=== PATIENT | female | born 1960 | race American Indian/Alaskan Native ===

== ENCOUNTER 2021-11-14 01:30 | Inpatient (IN) | payer SELFPAY ==
[2021-11-14] MEDS ORDERED: ACETAMINOPHEN 500 MG TAB PO ONE (02:25)
[2021-11-14] MEDS ORDERED: ACETAMINOPHEN 325 MG TAB PO ONE (02:28)
[2021-11-14] MEDS ORDERED: SODIUM CHLORIDE 0.9% 1000 ML 1,000 ML IV ONE ×3 (02:30→02:41)
[2021-11-14] MEDS ORDERED: PIPERACIL/TAZOBACTA 4.5/NS 100 4.5 GM/100 ML VIAL IV ONE (02:40)
[2021-11-14 03:00] LABS: Hemoglobin 6.3 gm/dl (10.1-14.3); Mean Corpuscular HGB Conc 33 % (30-34); Mean Corpuscular Volume 77 fl (79-97); Platelet Count 226 K/mm3 (140-440); Red Blood Count 2.54 M/mm3 (3.65-5.03)
--- NOTE | 2021-11-14 03:03 | XRay Report ---
CHEST 1 VIEW 11/14/2021 1:52 AM INDICATION / CLINICAL INFORMATION: fever. COMPARISON: None available. FINDINGS: SUPPORT DEVICES: None. HEART / MEDIASTINUM: No significant abnormality. LUNGS / PLEURA: No significant pulmonary or pleural abnormality. No pneumothorax. ADDITIONAL FINDINGS: No significant additional findings. IMPRESSION: No acute abnormality. Signer Name: Rufino Earl MD Signed: 11/14/2021 2:59 AM Workstation Name: [id number]
[2021-11-14 03:05] LABS: Hematocrit 19.5 % (30.3-42.9); Red Cell Distribution Width 21.4 % (13.2-15.2)
[2021-11-14 03:23] LABS: Alanine Aminotransferase 65 units/L (7-56); Albumin 3.1 g/dL (3.9-5); Blood Urea Nitrogen 12 mg/dL (7-17); Calcium 8.5 mg/dL (8.4-10.2); Hemolysis Index 0
[2021-11-14] MEDS ORDERED: fentaNYL 100 MCG/2 ML INJ IV ONE ×2 (03:30→05:05)
[2021-11-14] MEDS ORDERED: SODIUM CHLORIDE 0.9% 500 ML 500 ML IV ONE (03:34)
[2021-11-14 03:36] LABS: Anisocytosis 1+; Band Neutrophils # (Manual) 0.1 K/mm3; Basophils % (Manual) 0 % (0.0-1.8); Eosinophils % (Manual) 0 % (0.0-4.3); Hypochromasia 2+; Total Cells Counted 100
[2021-11-14 03:37] LABS: Platelet Estimate Consistent w Auto
[2021-11-14 03:39] LABS: BUN/Creatinine Ratio 30
[2021-11-14 04:32] LABS: INR 1.32 (0.87-1.13)
[2021-11-14 04:33] LABS: Partial Thromboplastin Time 27.9 Sec. (24.2-36.6)
--- NOTE | 2021-11-14 04:57 | Cat Scan Report ---
CT ABDOMEN AND PELVIS WITH CONTRAST INDICATION / CLINICAL INFORMATION: hx of cholangiocarcinoma, p/w abd pain, fever, dec. TECHNIQUE: Axial CT images were obtained through the abdomen and pelvis after Omnipaque 300, 100 cc I V contrast. All CT scans at this location are performed using CT dose reduction for ALARA by means o f automated exposure control. COMPARISON: None available. FINDINGS: LOWER CHEST: No significant abnormality. LIVER: Large left hepatic mass is heterogeneous measuring approximately 8.5 cm. This extends outside the liver. Complex fluid collection with internal debris and air anterior and medial left hepatic lob e contains a drain. This may represent the anterior portion of the large hepatic mass. This measures 6.6 cm. 2 cm cyst adjacent to the IVC. GALLBLADDER: Nonvisualized. BILE DUCTS: Left hepatic ductal dilatation. PANCREAS: No significant abnormality. SPLEEN: No significant abnormality. ADRENALS: No significant abnormality. RIGHT KIDNEY / URETER: No significant abnormality. LEFT KIDNEY / URETER: No significant abnormality. STOMACH / SMALL BOWEL: No significant abnormality. COLON: Noninflamed right-sided diverticulosis. APPENDIX: Nonvisualized. PERITONEUM: No free fluid. No free air. No fluid collection. LYMPH NODES: 1.1 cm node anterior to the left hepatic lobe. VASCULAR STRUCTURES: No significant abnormality. URINARY BLADDER: No significant abnormality. REPRODUCTIVE ORGANS: Arch, fibroid uterus. ADDITIONAL FINDINGS: None. SKELETAL SYSTEM: No significant abnormality. IMPRESSION: 1. Large, complex left hepatic mass with resultant left ductal dilatation. This represents cholangioc arcinoma by history. 2. Complex collection may be the anterior portion of the hepatic mass. This contains a drain. 3. Enlarged node anterior to the left hepatic lobe. Signer Name: Rufino Earl MD Signed: 11/14/2021 4:53 AM Workstation Name: [id number]
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
[2021-11-14] MEDS ORDERED: ALBUTEROL 2.5 MG/3 ML NEBU IH PRN (05:35)
[2021-11-14] MEDS ORDERED: ACETAMINOPHEN 325 MG TAB PO PRN (05:35)
--- NOTE | 2021-11-14 05:47 | History and Physical Report ---
History of Present Illness Date of examination: 11/14/21 Date of admission: 11/14/21 Chief complaint: Abdominal pain Nausea vomiting History of present illness: 61-year-old female with history of cholangiocarcinoma, presents for evaluation of body aches fevers chills and decreased drainage from her biliary drain site. Patient reports she moved from [place] 1 week ago and states she has not establish care with a primary care doctor or oncologist while here. She states she was told "my cancer is terminal." She is not currently on chemotherapy. She reports she has been performing wound dressings at home. She states that over the past days she has noted purulent drainage from her wound site. She reports abdominal pain at the site of her drain and states that the drain has been having less biliary drainage than normal. No nausea or vomiting. No chest pain or shortness of breath no difficulty breathing. Pain currently 10 out of [address] scan of the abdomen shows a large complex left hepatic mass with resultant left ductal dilatation. This represents cholangiocarcinoma by history. Complex collection may be anterior portion of the hepatic mass this contains a drain. Enlarged node anterior to the left hepatic lobe Case reviewed via telephone with on-call surgeon, Dr. Davila. Per her verbal report there is no acute or emergent surgical intervention for this patient given the findings on the patient's CAT scan. She also states that gastroenterology likely will not be able to provide any additional input on the patient's biliary drain. The patient confirmed with me during our discussion that she had her biliary drain placed by interventional radiology. She agrees with admission to the hospitalist service and states that the hospitalist service can consult interventional radiology at the time of the patient's admission, for evaluation and management of the patient's biliary drain. Past History Past Medical History: DVT, other (Bile duct cancer) Past Surgical History: Other (radiation embolization, ablasion - bag removed twice & reinserted) Social history: no significant social history Family history: hypertension Medications and Allergies Allergies Allergy/AdvReac Type Severity Reaction Status Date / Time iron AdvReac Itching Verified 11/14/21 02:08 Active Meds: Active Medications Acetaminophen (Acetaminophen 325 Mg Tab) 650 mg PO Q4H PRN PRN Reason: Pain MILD(1-3)/Fever >100.5/CHING Albuterol (Albuterol 2.5 Mg/3 Ml Nebu) 2.5 mg IH Q3HRT PRN PRN Reason: Shortness Of Breath Albuterol/Ipratropium (Ipratropium/Albuterol Sulfate 3 Ml Ampul.Neb) 1 ampul IH Q6HRT VANESSA Famotidine (Famotidine 20 Mg/2 Ml Inj) 20 mg IV BID VANESSA NORepinephrine/NS 8 MG-250 ML (Norepinephrine/Ns 8 Mg-250 Ml (Double Conc)) 8 mg in 250 mls @ 3.75 mls/hr IV TITRATE VANESSA; Protocol Dextrose/Sodium Chloride (D5ns) 1,000 mls @ 125 mls/hr IV DIRECT VANESSA Ondansetron HCl (Ondansetron 4 Mg/2 Ml Inj) 4 mg IV Q8H PRN PRN Reason: Nausea And Vomiting Sodium Chloride (Sodium Chloride 0.9% 10 Ml Flush Syringe) 10 ml IV BID VANESSA Sodium Chloride (Sodium Chloride 0.9% 10 Ml Flush Syringe) 10 ml IV PRN PRN PRN Reason: LINE FLUSH Review of Systems All systems: negative Gastrointestinal: abdominal pain, nausea, vomiting Exam - Constitutional Vitals: Temp Pulse Resp BP Pulse Ox 99.9 F H 105 H 16 81/48 100 11/14/21 05:02 11/14/21 05:02 11/14/21 05:02 11/14/21 05:02 11/14/21 05:02 General appearance: Present: no acute distress, well-nourished - EENT Eyes: Present: PERRL ENT: hearing intact, clear oral mucosa - Neck Neck: Present: supple, normal ROM - Respiratory Respiratory effort: normal Respiratory: bilateral: diminished - Cardiovascular Heart Sounds: Present: S1 & S2. Absent: rub, click - Extremities Extremities: pulses symmetrical, No edema Peripheral Pulses: within normal limits - Abdominal General gastrointestinal: Present: soft, non-tender, non-distended, normal bowel sounds Female genitourinary: Present: normal - Integumentary Integumentary: Present: clear, warm, dry - Musculoskeletal Musculoskeletal: gait normal, strength equal bilaterally - Psychiatric Psychiatric: appropriate mood/affect, intact judgment & insight - Neurologic Neurologic: CNII-XII intact, moves all extremities Results - Labs CBC & Chem 7: 11/14/21 02:50 11/14/21 02:50 Labs: Laboratory Last Values WBC 8.6 K/mm3 (4.5-11.0) 11/14/21 02:50 RBC 2.54 M/mm3 (3.65-5.03) L 11/14/21 02:50 Hgb 6.3 gm/dl (10.1-14.3) L 11/14/21 02:50 Hct 19.5 % (30.3-42.9) L* 11/14/21 02:50 MCV 77 fl (79-97) L 11/14/21 02:50 MCH 25 pg (28-32) L 11/14/21 02:50 MCHC 33 % (30-34) 11/14/21 02:50 RDW 21.4 % (13.2-15.2) H 11/14/21 02:50 Plt Count 226 K/mm3 (140-440) 11/14/21 02:50 Add Manual Diff Complete 11/14/21 02:50 Total Counted 100 11/14/21 02:50 Seg Neutrophils % [employer] 11/14/21 02:50 Seg Neuts % (Manual) 94.0 % (40.0-70.0) H 11/14/21 02:50 Band Neutrophils % 1.0 % 11/14/21 02:50 Lymphocytes % (Manual) 1.0 % (13.4-35.0) L 11/14/21 02:50 Reactive Lymphs % (Man) 0 % 11/14/21 02:50 Monocytes % (Manual) 4.0 % (0.0-7.3) 11/14/21 02:50 Eosinophils % (Manual) 0 % (0.0-4.3) 11/14/21 02:50 Basophils % (Manual) 0 % (0.0-1.8) 11/14/21 02:50 Metamyelocytes % 0 % 11/14/21 02:50 Myelocytes % 0 % 11/14/21 02:50 Promyelocytes % 0 % 11/14/21 02:50 Blast Cells % 0 % 11/14/21 02:50 Nucleated RBC % 1.0 % (0.0-0.9) H 11/14/21 02:50 Seg Neutrophils # Man 8.1 K/mm3 (1.8-7.7) H 11/14/21 02:50 Band Neutrophils # 0.1 K/mm3 11/14/21 02:50 Lymphocytes # (Manual) 0.1 K/mm3 (1.2-5.4) L 11/14/21 02:50 Abs React Lymphs (Man) 0.0 K/mm3 11/14/21 02:50 Monocytes # (Manual) 0.3 K/mm3 (0.0-0.8) 11/14/21 02:50 Eosinophils # (Manual) 0.0 K/mm3 (0.0-0.4) 11/14/21 02:50 Basophils # (Manual) 0.0 K/mm3 (0.0-0.1) 11/14/21 02:50 Metamyelocytes # 0.0 K/mm3 11/14/21 02:50 Myelocytes # 0.0 K/mm3 11/14/21 02:50 Promyelocytes # 0.0 K/mm3 11/14/21 02:50 Blast Cells # 0.0 K/mm3 11/14/21 02:50 WBC Morphology Not Reportable 11/14/21 02:50 Hypersegmented Neuts Not Reportable 11/14/21 02:50 Hyposegmented Neuts Not Reportable 11/14/21 02:50 Hypogranular Neuts Not Reportable 11/14/21 02:50 Smudge Cells Not Reportable 11/14/21 02:50 Toxic Granulation Not Reportable 11/14/21 02:50 Toxic Vacuolation Not Reportable 11/14/21 02:50 Dohle Bodies Not Reportable 11/14/21 02:50 Pelger-Huet Anomaly Not Reportable 11/14/21 02:50 Moises Rods Not Reportable 11/14/21 02:50 Platelet Estimate Consistent w auto 11/14/21 02:50 Clumped Platelets Not Reportable 11/14/21 02:50 Plt Clumps, EDTA Not Reportable 11/14/21 02:50 Large Platelets Not Reportable 11/14/21 02:50 Giant Platelets Not Reportable 11/14/21 02:50 Platelet Satelliting Not Reportable 11/14/21 02:50 Plt Morphology Comment Not Reportable 11/14/21 02:50 RBC Morphology Not Reportable 11/14/21 02:50 Dimorphic RBCs Not Reportable 11/14/21 02:50 Polychromasia Not Reportable 11/14/21 02:50 Hypochromasia 2+ 11/14/21 02:50 Poikilocytosis Not Reportable 11/14/21 02:50 Anisocytosis 1+ 11/14/21 02:50 Microcytosis Not Reportable 11/14/21 02:50 Macrocytosis Not Reportable 11/14/21 02:50 Spherocytes Not Reportable 11/14/21 02:50 Pappenheimer Bodies Not Reportable 11/14/21 02:50 Sickle Cells Not Reportable 11/14/21 02:50 Target Cells Not Reportable 11/14/21 02:50 Tear Drop Cells Not Reportable 11/14/21 02:50 Ovalocytes Not Reportable 11/14/21 02:50 Helmet Cells Not Reportable 11/14/21 02:50 [place] Bodies Not Reportable 11/14/21 02:50 [place] Rings Not Reportable 11/14/21 02:50 [place] Cells Not Reportable 11/14/21 02:50 Bite Cells Not Reportable 11/14/21 02:50 Crenated Cell Not Reportable 11/14/21 02:50 Elliptocytes Not Reportable 11/14/21 02:50 Acanthocytes (Spur) Not Reportable 11/14/21 02:50 Rouleaux Not Reportable 11/14/21 02:50 Hemoglobin C Crystals Not Reportable 11/14/21 02:50 Schistocytes Not Reportable 11/14/21 02:50 Malaria parasites Not Reportable 11/14/21 02:50 David Bodies Not Reportable 11/14/21 02:50 Hem Pathologist Commnt No 11/14/21 02:50 PT 17.9 Sec. (12.2-14.9) H 11/14/21 04:13 INR 1.32 (0.87-1.13) H 11/14/21 04:13 APTT 27.9 Sec. (24.2-36.6) 11/14/21 04:13 Sodium 135 mmol/L (137-145) L 11/14/21 02:50 Potassium 3.9 mmol/L (3.6-5.0) 11/14/21 02:50 Chloride 100.2 mmol/L (98-107) 11/14/21 02:50 Carbon Dioxide 24 mmol/L (22-30) 11/14/21 02:50 Anion Gap 15 mmol/L 11/14/21 02:50 BUN 12 mg/dL (7-17) 11/14/21 02:50 Creatinine 0.4 mg/dL (0.6-1.2) L 11/14/21 02:50 Estimated GFR > 60 ml/min 11/14/21 02:50 BUN/Creatinine Ratio 30 % 11/14/21 02:50 Glucose 110 mg/dL (65-100) H 11/14/21 02:50 Lactic Acid 4.40 mmol/L (0.7-2.0) H* 11/14/21 04:25 Calcium 8.5 mg/dL (8.4-10.2) 11/14/21 02:50 Total Bilirubin 1.70 mg/dL (0.1-1.2) H 11/14/21 02:50 AST 79 units/L (5-40) H 11/14/21 02:50 ALT 65 units/L (7-56) H 11/14/21 02:50 Alkaline Phosphatase 305 units/L (35-129) H 11/14/21 02:50 Total Protein 6.4 g/dL (6.3-8.2) 11/14/21 02:50 Albumin 3.1 g/dL (3.9-5) L 11/14/21 02:50 Albumin/Globulin Ratio 0.9 % 11/14/21 02:50 Lipase 19 units/L (13-60) 11/14/21 02:50 Blood Type AB POSITIVE 11/14/21 04:25 Antibody Screen Negative 11/14/21 04:25 Crossmatch See Detail 11/14/21 04:25 - Imaging and Cardiology CT scan - abdomen: report reviewed Assessment and Plan VTE prophylaxis?: Mechanical Plan of care discussed with patient/family: Yes - Patient Problems (1) Sepsis Current Visit: Yes Status: Acute Plan to address problem: Admit the patient to the IMCU. D5 normal saline at the rate of 125 cc/h. Vancomycin 1 g IV every 12 hours. And Zosyn 4.5 g IV every 8 hours. Case discussed with Dr. Davila who recommended to consult interventional radiology. Blood culture. Recheck CBC BMP in the morning (2) Cholangiocarcinoma Current Visit: Yes Status: Acute Plan to address problem: Case reviewed via telephone with on-call surgeon, Dr. Davila. Per her verbal report there is no acute or emergent surgical intervention for this patient given the findings on the patient's CAT scan. She also states that gastroenterology likely will not be able to provide any additional input on the patient's biliary drain. The patient confirmed with me during our discussion that she had her biliary drain placed by interventional radiology. She agrees with admission to the hospitalist service and states that the hospitalist service can consult interventional radiology at the time of the patient's admission, for evaluation and management of the patient's biliary drain. (3) DVT (deep venous thrombosis) Current Visit: Yes Status: Acute Plan to address problem: Heparin 5000 units subcu every 12 hours for DVT prophylaxis. We continue the home medication (4) Symptomatic anemia Current Visit: Yes Status: Acute Plan to address problem: Transfuse 2 unit of packed red blood cell. Recheck CBC in the morning (5) DVT prophylaxis Current Visit: Yes Status: Acute Plan to address problem: Heparin 5000 units subcu every 12 hours for DVT prophylaxis. Pepcid 20 mg IV every 12 hours for GI prophylaxis. Patient is a full code
[2021-11-14] MEDS ORDERED: VANCOMYCIN/NS 1 GM/250 ML 1 GM/250 ML BAG IV ONE ×2 (06:00→08:00)
[2021-11-14] MEDS ORDERED: NORepinephrine/NS 8 MG-250 ML 8 MG/250 ML INFUS..BTL IV SCH (06:00)
[2021-11-14] MEDS ORDERED: VANCOMYCIN PHARMACY TO DOSE IV SCH (06:00)
[2021-11-14] MEDS ORDERED: LIDOCAINE 1%/EPINEPHRINE 1:100,000 VIAL (20 ML) INFILTRATI NR (06:30)
[2021-11-14] MEDS ORDERED: IPRATROPIUM/ALBUTEROL SULFATE 3 ML AMPUL.NEB IH SCH (08:00)
[2021-11-14] MEDS: D5W/0.9% NACL 1,000 ML IV SCH ×3 (08:54→20:23)
--- NOTE | 2021-11-14 09:13 | Electrocardiograph Report ---
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
--- NOTE | 2021-11-14 09:18 | Consultation ---
History of Present Illness - Reason for Consult Consult date: 11/14/21 Malfunctioning drain - History of Present Illness Patient moved here approximately 1 week ago from [place]. Per patient, she has a history of cholangiocarcinoma. Previous biliary drain initially placed towards the end of last year. This became clogged in June and was then exchanged and again exchanged in October. I the patient was in her usual state of health and moving belongings while arranging medical care in this area when she began to feel lightheaded and dizzy. She presented to the ER and was found to b e septic. Patient states that there is some irritation at the catheter exit site but no purulent drainage. The drain appears to be appropriately placed and positioned within the fluid collection in the left hepatic lobe. There is a large mass peripheral to the fluid collection. Patient does have some intrahepatic biliary ductal dilatation bilaterally left greater than right. Her T bili is mildly elevated. At time of examination, the patient is receiving a unit of blood. No complaints. Vitals are stable at time of examination. Past History Past Medical History: DVT, other (Bile duct cancer) Past Surgical History: Other (radiation embolization, ablasion - bag removed twice & reinserted) Social history: no significant social history Family history: hypertension Medications and Allergies Allergies Allergy/AdvReac Type Severity Reaction Status Date / Time iron AdvReac Itching Verified 11/14/21 02:08 Active Meds: Active Medications Acetaminophen (Acetaminophen 325 Mg Tab) 650 mg PO Q4H PRN PRN Reason: Pain MILD(1-3)/Fever >100.5/CHING Albuterol (Albuterol 2.5 Mg/3 Ml Nebu) 2.5 mg IH Q3HRT PRN PRN Reason: Shortness Of Breath Famotidine (Famotidine 20 Mg/2 Ml Inj) 20 mg IV BID VANESSA NORepinephrine/NS 8 MG-250 ML (Norepinephrine/Ns 8 Mg-250 Ml (Double Conc)) 8 mg in 250 mls @ 3.75 mls/hr IV TITRATE VANESSA; Protocol Last Titration: 11/14/21 07:25 Dose: 10 mcg/min, 18.75 mls/hr Dextrose/Sodium Chloride (D5ns) 1,000 mls @ 125 mls/hr IV DIRECT VANESSA Last Admin: 11/14/21 08:54 Dose: 125 mls/hr Piperacillin Sod/Tazobactam Sod (Zosyn/Ns 4.5gm/100ml) 4.5 gm in 100 mls @ 200 mls/hr IV Q8H VANESSA; Protocol Vancomycin HCl 750 mg/ Sodium (Chloride) 265 mls @ 166.667 mls/hr IV Q12H VANESSA Lidocaine/Epinephrine (Lidocaine 1%/Epinephrine 1:100,000 Vial (20 Ml)) 20 ml INFILTRATI ONCE NR Stop: 11/15/21 06:29 Morphine Sulfate (Morphine 2 Mg/1 Ml Inj) 2 mg IV Q4H PRN PRN Reason: Pain, Moderate (4-6) Morphine Sulfate (Morphine 4 Mg/1 Ml Inj) 4 mg IV Q4H PRN PRN Reason: Pain , Severe (7-10) Ondansetron HCl (Ondansetron 4 Mg/2 Ml Inj) 4 mg IV Q8H PRN PRN Reason: Nausea And Vomiting Sodium Chloride (Sodium Chloride 0.9% 10 Ml Flush Syringe) 10 ml IV BID VANESSA Sodium Chloride (Sodium Chloride 0.9% 10 Ml Flush Syringe) 10 ml IV PRN PRN PRN Reason: LINE FLUSH Review of Systems All systems: negative Exam - Constitutional Vitals: Temp Pulse Resp BP Pulse Ox 98.4 F 86 17 94/60 100 11/14/21 08:30 11/14/21 08:30 11/14/21 08:30 11/14/21 08:30 11/14/21 08:52 General appearance: Present: cachectic - EENT Eyes: Present: EOM intact ENT: hearing intact - Neck Neck: Present: supple, normal ROM - Respiratory Respiratory effort: normal - Abdominal General gastrointestinal: Present: soft, non-distended Female genitourinary: Present: deferred - Rectal Rectal Exam: deferred - Psychiatric Psychiatric: appropriate mood/affect, cooperative Results - Labs CBC & Chem 7: 11/14/21 02:50 11/14/21 02:50 Labs: Abnormal lab results 11/14/21 11/14/21 11/14/21 Range/Units 02:50 02:50 02:50 RBC 2.54 L (3.65-5.03) M/mm3 Hgb 6.3 L (10.1-14.3) gm/dl Hct 19.5 L* (30.3-42.9) % MCV 77 L (79-97) fl MCH 25 L (28-32) pg RDW 21.4 H (13.2-15.2) % Seg Neuts % (Manual) 94.0 H (40.0-70.0) % Lymphocytes % (Manual) 1.0 L (13.4-35.0) % Nucleated RBC % 1.0 H (0.0-0.9) % Seg Neutrophils # Man 8.1 H (1.8-7.7) K/mm3 Lymphocytes # (Manual) 0.1 L (1.2-5.4) K/mm3 PT (12.2-14.9) Sec. INR (0.87-1.13) Sodium 135 L (137-145) mmol/L Creatinine 0.4 L (0.6-1.2) mg/dL Glucose 110 H (65-100) mg/dL Lactic Acid 2.40 H* (0.7-2.0) mmol/L Total Bilirubin 1.70 H (0.1-1.2) mg/dL AST 79 H (5-40) units/L ALT 65 H (7-56) units/L Alkaline Phosphatase 305 H (35-129) units/L Albumin 3.1 L (3.9-5) g/dL Crossmatch 11/14/21 11/14/21 11/14/21 Range/Units 04:13 04:25 04:25 RBC (3.65-5.03) M/mm3 Hgb (10.1-14.3) gm/dl Hct (30.3-42.9) % MCV (79-97) fl MCH (28-32) pg RDW (13.2-15.2) % Seg Neuts % (Manual) (40.0-70.0) % Lymphocytes % (Manual) (13.4-35.0) % Nucleated RBC % (0.0-0.9) % Seg Neutrophils # Man (1.8-7.7) K/mm3 Lymphocytes # (Manual) (1.2-5.4) K/mm3 PT 17.9 H (12.2-14.9) Sec. INR 1.32 H (0.87-1.13) Sodium (137-145) mmol/L Creatinine (0.6-1.2) mg/dL Glucose (65-100) mg/dL Lactic Acid 4.40 H* (0.7-2.0) mmol/L Total Bilirubin (0.1-1.2) mg/dL AST (5-40) units/L ALT (7-56) units/L Alkaline Phosphatase (35-129) units/L Albumin (3.9-5) g/dL Crossmatch See Detail - Imaging and Cardiology CT scan - abdomen: report reviewed, image reviewed CT scan - pelvis: report reviewed, image reviewed Assessment and Plan Patient with malfunctioning drainage catheter. On presentation she was on pressors which have been discontinued with stable blood pressure. She did have some decrease in hemoglobin and is currently receiving 1 unit of blood with 1 un it to follow. The patient will be brought down to the [facility] today for exchange of her external biliary drainage catheter. Lengthy discussion with patient regarding the need for her to follow-up at a facility that can provide comprehensive care as we do not have the ability to provide hepatobiliary care at this institution. Recommended [facility]. The patient's insurance will begin December 02 and she is in the process of coordinating care.
[2021-11-14] MEDS ORDERED: PIPERACIL/TAZOBACTA 4.5/NS 100 4.5 GM/100 ML VIAL IV SCH (10:00)
[2021-11-14] MEDS ORDERED: LIDOCAINE (1%) 10 MG/1 ML VIAL 20 ML MDV ONE (10:53)
[2021-11-14] MEDS ORDERED: SODIUM CHLORIDE IRRI 500 ML 500 ML IR ONE (10:53)
[2021-11-14] MEDS ORDERED: MIDAZOLAM 2 MG/2 ML INJ ONE (10:54)
[2021-11-14] MEDS ORDERED: fentaNYL 100 MCG/2 ML INJ ONE (10:54)
--- NOTE | 2021-11-14 11:12 | Operative Report ---
Operative Report Operative Report: Exam: Fluoroscopic guided evaluation of indwelling drainage catheter, fluoroscopic guided exchange of indwelling drainage catheter Clinical indication: Patient with a history of cholangiocarcinoma with indwelling drainage catheter providing biliary drainage which is clogged. Date: 11/14/2021 Procedure: Following an explanation of the risk, benefits and alternatives; written informed consent was obtained. The patient was brought to the angiographic suite and placed in supine position on the examination table. Initial fluoroscopic images of the upper abdomen demonstrated a drainage catheter in appropriate positioning in the left hepatic lobe. The patient's abdomen and right flank were prepped and draped in the usual sterile fashion. 2% lidocaine was used for anesthesia. Contrast was gently injected through the indwelling drainage catheter however, the drainage catheter holes are clogged. A 0.035 guidewire was then advanced through the indwelling drainage catheter under fluoroscopy to the tip of the catheter and then coiled within the fluid collection. The indwelling drainage catheter was then removed intact. A new 10 [place]i drainage catheter was then advanced over the guidewire and coiled in the central aspect of the fluid collection. There is prompt return of bilious fluid with some degree of blood- tinged drainage. The catheter was securely fastened to the skin surface using 2-0 Ethilon suture and a stay fix device and a sterile dressing applied. The catheter was then placed to dependent drainage. The patient tolerated the procedure well. There were no immediate postprocedure complications. A minimal amount of conscious sedation was utilized secondary to patient's ca rdiopulmonary status. Continuous cardiopulmonary monitoring was utilized. Impression: 1) Fluoroscopic guided evaluation of indwelling drainage catheter demonstrating clogged drainage catheter. 2) Fluoroscopic guided exchange of indwelling biliary drainage catheter with placement of a new 10 Yemeni biliary drainage catheter. Prompt return of significant amounts of bilious fluid with a small amount of blood-tinged to the fluid. A sample was sent for laboratory analysis.
[2021-11-14] MEDS: metroNIDAZOLE/NS 500 MG/100 ML 500 MG/100 ML BAG IV SCH ×2 (11:31→21:03)
[2021-11-14] MEDS: FAMOTIDINE 20 MG/2 ML INJ IV SCH ×2 (11:31→21:03)
[2021-11-14] MEDS ORDERED: SODIUM CHLORIDE 0.9% 500 ML 500 ML ONE (12:22)
--- NOTE | 2021-11-14 12:25 | Event Note ---
Date: 11/14/21 Patient with Bile Duct Carcinoma, recently moved to [place] for further care. Was admitted to IM but had hypotension so started on pressors and then transferred to ICU. Since more fluid administration, and blood products, now off pressors. Likely septic from drain that has been exchanged by IR and drainage sent for culture. On broad spec abx therapy as well. From a critical care standpoint stable and can be transferred out of the unit.
[2021-11-14] MEDS: CEFEPIME/NS 2 GM/100 ML 2 GM/100 ML BAG IV SCH ×2 (12:34→20:21)
[2021-11-14] MEDS: VANCOMYCIN 750 MG in SODIUM CHLORIDE 0.9% 250ML 250 ML IV SCH (17:49)
--- NOTE | 2021-11-14 17:55 | Event Note ---
Date: 11/14/21 This is a 61-year-old female with cholangiocarcinoma status post radiation with embolization ablation and biliary drain placement, DVT on home Eliquis since 2007 who presented to emergency department on 11/14 with complaints of body aches, fevers, chills and increased drainage from her biliary drain site which was said to be purulent. She stated over the past days she noted that the drainage from her wound site was purulent and she had abdominal pain at the insertion site of. In the emergency department patient had a CT scan of abdomen/pelvis which showed large complex hepatic mass with resultant left duct dilation which represents clinical carcinoma and a complex collection in the anterior portion of the hepatic mass which continues to drain, and large node anterior to the left hepatic lobe. Surgery was consulted in the emergency department with stated there was no acute or emergent surgical intervention and suggested consult to them IR for possible intervention in a.m. Patient was admitted to the hospitalist service with symptomatic anemia and sepsis to the IMCU. Patient was given IV fluids and eventually needed to be started on Levophed and was transferred to ICU. [facility] was consulted. Hospital course to date: 11/14: Patient has been weaned off of Levophed, was taken to IR suite with exchange of indwelling biliary drain catheter and placement of a new biliary drain catheter. Patient has been stable in the ICU and will be transferred to the floor. Assessment and plan This is a 61-year-old female with cholangiocarcinoma s/p biliary drain placement and DVTs admitted with symptomatic anemia and sepsis Neuro: NAD -Reorientation as needed -Maintain sleep-wake cycle -As needed analgesia Cardiac: Hypotension -CCM consulted, appreciate recommendations -S/p vasopressor support with Levophed -Blood pressure monitoring per protocol Respiratory: NAD -Currently on room air -SPO2 monitor per protocol -Supplemental oxygen as needed -Pulmonary hygiene GI: Mild protein calorie malnutrition, transaminitis -Regular diet -PPI -Nutrition supplementation -BR: Colace -Trend LFT : Slight hyponatremia -Monitor intake and output -Renally dose medication -Avoid nephrotoxic medication -Trend BMP ID: Sepsis (POA), lactic acidosis -Per patient patient had a biliary drain initially placed towards the end of 2020 which became clogged in June and was exchanged, catheter was exchanged again in October -Presented with fevers, purulent drainage from biliary drain site, hypotension, lactic acidosis -CT abdomen/pelvis showed large left hepatic mass with left ductal dilation and fluid collection -IR consulted, appreciate recommendations -S/p fluoroscopic guided evaluation of indwelling drainage catheter demonstrating cloudy drainage catheter, fluoroscopic guided exchange of indwelling biliary drain catheter with placement of new 10 Occitan biliary drain catheter with prompt return of significant amounts of bilious fluid with small amount of blood-tinged fluid -S/p 3 L normal saline bolus -Antibiotic therapy with cefepime, Flagyl, vancomycin -f/u blood culture -Culture obtained in IR -Monitor WBC and temperature curve -Trend lactic acid Endo: NAD -Avoid hypoglycemia Heme: Symptomatic anemia -Trend CBC -Transfuse hemoglobin less than 7 -Admit H/H6.3/19.9 -2 unit PRBC -SCDs to BLE while in bed The high probability of a clinically significant, sudden or life threatening deterioration of the [multi] system(s) required my full and direct attention, intervention and personal management. The aggregate critical care time was [602] minutes. This time is in addition to time spent performing reported procedures but includes the following: [x] Data Review and interpretation [x] Patient assessment and monitoring of vital signs [x] Documentation [x] Medication orders and management
[2021-11-14] MEDS: MORPHINE 2 MG/1 ML INJ IV PRN (20:18)
[2021-11-14] MEDS: ONDANSETRON 4 MG/2 ML INJ IV PRN (21:09)
[2021-11-14] MEDS: DOCUSATE SODIUM 100 MG CAP PO SCH (21:51)
[2021-11-15] MEDS: MORPHINE 2 MG/1 ML INJ IV PRN ×5 (00:17→23:51)
[2021-11-15] MEDS: VANCOMYCIN 750 MG in SODIUM CHLORIDE 0.9% 250ML 250 ML IV SCH ×2 (02:29→09:23)
[2021-11-15] MEDS: CEFEPIME/NS 2 GM/100 ML 2 GM/100 ML BAG IV SCH ×3 (04:07→18:42)
[2021-11-15] MEDS: metroNIDAZOLE/NS 500 MG/100 ML 500 MG/100 ML BAG IV SCH ×2 (04:08→12:18)
[2021-11-15 05:21] LABS: Hematocrit 28.9 % (30.3-42.9); Hemoglobin 9.2 gm/dl (10.1-14.3); Mean Corpuscular HGB Conc 32 % (30-34); Mean Corpuscular Volume 82 fl (79-97); Platelet Count 196 K/mm3 (140-440); Red Blood Count 3.51 M/mm3 (3.65-5.03); Red Cell Distribution Width 18.8 % (13.2-15.2)
[2021-11-15 05:22] LABS: Blood Urea Nitrogen 8 mg/dL (7-17); Calcium 8.4 mg/dL (8.4-10.2); Hemolysis Index 6
[2021-11-15 05:26] LABS: BUN/Creatinine Ratio 20
[2021-11-15 07:09] LABS: Band Neutrophils # (Manual) 0.1 K/mm3; Basophils % (Manual) 0 % (0.0-1.8); Total Cells Counted 100
[2021-11-15 07:10] LABS: Anisocytosis 1+; Hypochromasia 2+; Ovalocytes Few; Poikilocytosis 1+
[2021-11-15 07:11] LABS: Platelet Estimate Consistent w Auto
[2021-11-15] MEDS: FAMOTIDINE 20 MG TAB PO SCH ×2 (09:23→21:58)
[2021-11-15] MEDS: APIXABAN 2.5 MG TAB PO SCH ×2 (09:23→21:58)
[2021-11-15] MEDS: DOCUSATE SODIUM 100 MG CAP PO SCH ×3 (09:23→22:00)
[2021-11-15] MEDS ORDERED: NON-FORMULARY EACH (Apixaban 2.5 MG Tablet) PO SCH (10:00)
--- NOTE | 2021-11-15 11:44 | Progress Note ---
Assessment and Plan Assessment and plan: Assessment and plan This is a 61-year-old female with cholangiocarcinoma s/p biliary drain placement and DVTs admitted with symptomatic anemia and sepsis Neuro: NAD -Reorientation as needed -Maintain sleep-wake cycle -As needed analgesia Cardiac: NAD -CCM consulted, appreciate recommendations -S/p vasopressor support with Levophed -Blood pressure monitoring per protocol Respiratory: NAD -Currently on room air -SPO2 monitor per protocol -Supplemental oxygen as needed -Pulmonary hygiene GI: Mild protein calorie malnutrition, transaminitis -Regular diet -PPI -Nutrition supplementation -BR: Colace -Trend LFTs : NAD -Monitor intake and output -Renally dose medication -Avoid nephrotoxic medication -Trend BMP ID: Sepsis (POA), lactic acidosis -Per patient patient had a biliary drain initially placed towards the end of 2020 which became clogged in June and was exchanged, catheter was exchanged again in October -Presented with fevers, purulent drainage from biliary drain site, hypotension, lactic acidosis -CT abdomen/pelvis showed large left hepatic mass with left ductal dilation and fluid collection -IR consulted, appreciate recommendations -S/p fluoroscopic guided evaluation of indwelling drainage catheter demonstrating cloudy drainage catheter, fluoroscopic guided exchange of indwelling biliary drain catheter with placement of new 10 Khmer biliary drain catheter with prompt return of significant amounts of bilious fluid with small amount of blood-tinged fluid -S/p 3 L normal saline bolus -Antibiotic therapy with cefepime, Flagyl, vancomycin -f/u blood culture -Wound culture obtained in IR -Monitor WBC and temperature curve -Trend lactic acid Endo: NAD -Avoid hypoglycemia Heme: Symptomatic anemia -Trend CBC -Transfuse hemoglobin less than 7 -Admit H/H 6.3/19.9 -s/p 2 unit PRBC -SCDs to BLE while in bed The high probability of a clinically significant, sudden or life threatening deterioration of the [multi] system(s) required my full and direct attention, intervention and personal management. The aggregate critical care time was [60] minutes. 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 She stated over the past days she noted that the drainage from her wound site was purulent and she had abdominal pain at the insertion site. In the emergency department patient had a CT scan of abdomen/pelvis which showed large complex hepatic mass with resultant left duct dilation which represents clinical carcinoma and a complex collection in the anterior portion of the hepatic mass which continues to drain, and large node anterior to the left hepatic lobe. Surgery was consulted in the emergency department with stated there was no acute or emergent surgical intervention and suggested consult to them IR for possible intervention in a.m. Patient was admitted to the hospitalist service with symptomatic anemia and sepsis to the IMCU. Patient was given IV fluids and eventually needed to be started on Levophed and was transferred to ICU. [facility] was consulted. Hospital course to date: 11/14: Patient has been weaned off of Levophed, was taken to IR suite with exchange of indwelling biliary drain catheter and placement of a new biliary drain catheter. Patient has been stable in the ICU and will be transferred to the floor. 11/15: Patient remained off levophed, drain is draining brown/bolanos fluid. Awaiting floor bed. Hospitalist Physical - Constitutional Vitals: Temp Pulse Resp BP Pulse Ox 97.5 F L 69 13 114/74 100 11/15/21 07:57 11/15/21 11:00 11/15/21 11:00 11/15/21 11:00 11/15/21 11:00 General appearance: Present: no acute distress, cachectic - EENT Eyes: Present: PERRL, EOM intact ENT: clear oral mucosa, dentition normal - Neck Neck: Present: normal ROM - Respiratory Respiratory effort: normal Respiratory: bilateral: CTA - Cardiovascular Rhythm: regular Heart Sounds: Present: S1 & S2. Absent: systolic murmur, diastolic murmur - Extremities Extremities: no ischemia, pulses intact, pulses symmetrical, No edema, normal temperature, normal color, Full ROM Peripheral Pulses: within normal limits - Abdominal General gastrointestinal: soft, non-tender, normal bowel sounds - Integumentary Integumentary: Present: warm, dry - Psychiatric Psychiatric: cooperative - Neurologic Neurologic: CNII-XII intact, no focal deficits, moves all extremities - Allied Health Allied health notes reviewed: nursing, RT, social work Results - Labs CBC & Chem 7: 11/15/21 04:22 11/15/21 04:22 Labs: Laboratory Last Values WBC 7.0 K/mm3 (4.5-11.0) 11/15/21 04:22 RBC 3.51 M/mm3 (3.65-5.03) L 11/15/21 04:22 Hgb 9.2 gm/dl (10.1-14.3) L 11/15/21 04:22 Hct 28.9 % (30.3-42.9) L D 11/15/21 04:22 MCV 82 fl (79-97) 11/15/21 04:22 MCH 26 pg (28-32) L 11/15/21 04:22 MCHC 32 % (30-34) 11/15/21 04:22 RDW 18.8 % (13.2-15.2) H 11/15/21 04:22 Plt Count 196 K/mm3 (140-440) 11/15/21 04:22 Add Manual Diff Complete 11/15/21 04:22 Total Counted 100 11/15/21 04:22 Seg Neutrophils % Cloth Desizing Range Operator Chief 11/14/21 02:50 Seg Neuts % (Manual) 87.0 % (40.0-70.0) H 11/15/21 04:22 Band Neutrophils % 1.0 % 11/15/21 04:22 Lymphocytes % (Manual) 7.0 % (13.4-35.0) L 11/15/21 04:22 Reactive Lymphs % (Man) 0 % 11/15/21 04:22 Monocytes % (Manual) 4.0 % (0.0-7.3) 11/15/21 04:22 Eosinophils % (Manual) 1.0 % (0.0-4.3) 11/15/21 04:22 Basophils % (Manual) 0 % (0.0-1.8) 11/15/21 04:22 Metamyelocytes % 0 % 11/15/21 04:22 Myelocytes % 0 % 11/15/21 04:22 Promyelocytes % 0 % 11/15/21 04:22 Blast Cells % 0 % 11/15/21 04:22 Nucleated RBC % Not Reportable 11/15/21 04:22 Seg Neutrophils # Man 6.1 K/mm3 (1.8-7.7) 11/15/21 04:22 Band Neutrophils # 0.1 K/mm3 11/15/21 04:22 Lymphocytes # (Manual) 0.5 K/mm3 (1.2-5.4) L 11/15/21 04:22 Abs React Lymphs (Man) 0.0 K/mm3 11/15/21 04:22 Monocytes # (Manual) 0.3 K/mm3 (0.0-0.8) 11/15/21 04:22 Eosinophils # (Manual) 0.1 K/mm3 (0.0-0.4) 11/15/21 04:22 Basophils # (Manual) 0.0 K/mm3 (0.0-0.1) 11/15/21 04:22 Metamyelocytes # 0.0 K/mm3 11/15/21 04:22 Myelocytes # 0.0 K/mm3 11/15/21 04:22 Promyelocytes # 0.0 K/mm3 11/15/21 04:22 Blast Cells # 0.0 K/mm3 11/15/21 04:22 WBC Morphology Not Reportable 11/15/21 04:22 Hypersegmented Neuts Not Reportable 11/15/21 04:22 Hyposegmented Neuts Not Reportable 11/15/21 04:22 Hypogranular Neuts Not Reportable 11/15/21 04:22 Smudge Cells Not Reportable 11/15/21 04:22 Toxic Granulation Not Reportable 11/15/21 04:22 Toxic Vacuolation Not Reportable 11/15/21 04:22 Dohle Bodies Not Reportable 11/15/21 04:22 Pelger-Huet Anomaly Not Reportable 11/15/21 04:22 Moises Rods Not Reportable 11/15/21 04:22 Platelet Estimate Consistent w auto 11/15/21 04:22 Clumped Platelets Not Reportable 11/15/21 04:22 Plt Clumps, EDTA Not Reportable 11/15/21 04:22 Large Platelets Not Reportable 11/15/21 04:22 Giant Platelets Not Reportable 11/15/21 04:22 Platelet Satelliting Not Reportable 11/15/21 04:22 Plt Morphology Comment Not Reportable 11/15/21 04:22 RBC Morphology Not Reportable 11/15/21 04:22 Dimorphic RBCs Not Reportable 11/15/21 04:22 Polychromasia Not Reportable 11/15/21 04:22 Hypochromasia 2+ 11/15/21 04:22 Poikilocytosis 1+ 11/15/21 04:22 Anisocytosis 1+ 11/15/21 04:22 Microcytosis Not Reportable 11/15/21 04:22 Macrocytosis Not Reportable 11/15/21 04:22 Spherocytes Not Reportable 11/15/21 04:22 Pappenheimer Bodies Not Reportable 11/15/21 04:22 Sickle Cells Not Reportable 11/15/21 04:22 Target Cells Not Reportable 11/15/21 04:22 Tear Drop Cells Not Reportable 11/15/21 04:22 Ovalocytes Few 11/15/21 04:22 Helmet Cells Not Reportable 11/15/21 04:22 Fagan-Briarwood Bodies Not Reportable 11/15/21 04:22 Samson Rings Not Reportable 11/15/21 04:22 Martin Cells Not Reportable 11/15/21 04:22 Bite Cells Not Reportable 11/15/21 04:22 Crenated Cell Not Reportable 11/15/21 04:22 Elliptocytes Few 11/15/21 04:22 Acanthocytes (Spur) Not Reportable 11/15/21 04:22 Rouleaux Not Reportable 11/15/21 04:22 Hemoglobin C Crystals Not Reportable 11/15/21 04:22 Schistocytes Not Reportable 11/15/21 04:22 Malaria parasites Not Reportable 11/15/21 04:22 David Bodies Not Reportable 11/15/21 04:22 Hem Pathologist Commnt No 11/15/21 04:22 PT 17.9 Sec. (12.2-14.9) H 11/14/21 04:13 INR 1.32 (0.87-1.13) H 11/14/21 04:13 APTT 27.9 Sec. (24.2-36.6) 11/14/21 04:13 Sodium 141 mmol/L (137-145) 11/15/21 04:22 Potassium 4.8 mmol/L (3.6-5.0) D 11/15/21 04:22 Chloride 111.5 mmol/L (98-107) H 11/15/21 04:22 Carbon Dioxide 22 mmol/L (22-30) 11/15/21 04:22 Anion Gap 12 mmol/L 11/15/21 04:22 BUN 8 mg/dL (7-17) 11/15/21 04:22 Creatinine 0.4 mg/dL (0.6-1.2) L 11/15/21 04:22 Estimated GFR > 60 ml/min 11/15/21 04:22 BUN/Creatinine Ratio 20 % 11/15/21 04:22 Glucose 91 mg/dL (65-100) 11/15/21 04:22 Lactic Acid 4.40 mmol/L (0.7-2.0) H* 11/14/21 04:25 Calcium 8.4 mg/dL (8.4-10.2) 11/15/21 04:22 Total Bilirubin 1.70 mg/dL (0.1-1.2) H 11/14/21 02:50 AST 79 units/L (5-40) H 11/14/21 02:50 ALT 65 units/L (7-56) H 11/14/21 02:50 Alkaline Phosphatase 305 units/L (35-129) H 11/14/21 02:50 Total Protein 6.4 g/dL (6.3-8.2) 11/14/21 02:50 Albumin 3.1 g/dL (3.9-5) L 11/14/21 02:50 Albumin/Globulin Ratio 0.9 % 11/14/21 02:50 Lipase 19 units/L (13-60) 11/14/21 02:50 Blood Type AB POSITIVE 11/14/21 04:25 Antibody Screen Negative 11/14/21 04:25 Crossmatch See Detail 11/14/21 04:25 Microbiology: Microbiology 11/14/21 02:50 Peripheral/Venous Blood Culture - Preliminary Culture in Progress 11/14/21 02:43 Peripheral/Venous Blood Culture - Preliminary Culture in Progress [place]o/IV: Voiding Method External Female Catheter Active Medications - Current Medications Current Medications: Generic Name Dose Route Start Last Admin Trade Name Freq PRN Reason Stop Dose Admin Acetaminophen 650 mg 11/14/21 05:35 11/14/21 14:06 Acetaminophen 325 Mg Tab PO 650 mg Q4H PRN Administration Pain MILD(1-3)/Fever >100.5/CHING Albuterol 2.5 mg 11/14/21 05:35 Albuterol 2.5 Mg/3 Ml Nebu IH Q3HRT PRN Shortness Of Breath Apixaban 2.5 mg 11/15/21 10:00 11/15/21 09:23 Apixaban 2.5 Mg Tab PO 2.5 mg Q12HR VANESSA Administration Protocol Docusate Sodium 100 mg 11/14/21 22:00 11/15/21 09:23 Docusate Sodium 100 Mg Cap PO 100 mg BID VANESSA Administration Famotidine 20 mg 11/15/21 10:00 11/15/21 09:23 Famotidine 20 Mg Tab PO 20 mg BID VANESSA Administration NORepinephrine/NS 8 MG-250 ML 8 mg in 250 mls @ 3.75 mls/hr 11/14/21 06:00 11/14/21 09:10 Norepinephrine/Ns 8 Mg-250 Ml (Double Conc) IV 0 mcg/min TITRATE VANESSA 0 mls/hr Titration Protocol 2 MCG/MIN Vancomycin HCl 750 mg/ Sodium 265 mls @ 166.667 mls/hr 11/14/21 18:00 11/15/21 09:23 Chloride IV 167 mls/hr Q8H VANESSA Administration Metronidazole 500 mg in 100 mls @ 100 mls/hr 11/14/21 11:00 11/15/21 04:08 Flagyl 500 Mg/100 Ml IV 100 mls/hr Q8H VANESSA Administration Protocol Cefepime HCl 2 gm in 100 mls @ 200 mls/hr 11/14/21 11:00 11/15/21 11:34 Cefepime/Ns 2 Gm/100 Ml IV 200 mls/hr Q8H VANESSA Administration Protocol Morphine Sulfate 2 mg 11/14/21 05:35 11/15/21 09:23 Morphine 2 Mg/1 Ml Inj IV 2 mg Q4H PRN Administration Pain, Moderate (4-6) Morphine Sulfate 4 mg 11/14/21 05:35 Morphine 4 Mg/1 Ml Inj IV Q4H PRN Pain , Severe (7-10) Ondansetron HCl 4 mg 11/14/21 05:35 11/14/21 21:09 Ondansetron 4 Mg/2 Ml Inj IV 4 mg Q8H PRN Administration Nausea And Vomiting Sodium Chloride 10 ml 11/14/21 10:00 11/15/21 09:24 Sodium Chloride 0.9% 10 Ml Flush Syringe IV 10 ml BID VANESSA Administration Sodium Chloride 10 ml 11/14/21 05:35 Sodium Chloride 0.9% 10 Ml Flush Syringe IV PRN PRN LINE FLUSH
[2021-11-15] MEDS: ONDANSETRON 4 MG/2 ML INJ IV PRN (17:23)
[2021-11-16] MEDS: CEFEPIME/NS 2 GM/100 ML 2 GM/100 ML BAG IV SCH ×3 (07:07→18:13)
[2021-11-16 07:59] LABS: Blood Urea Nitrogen TNR mg/dL (7-17)
[2021-11-16 08:00] LABS: Alanine Aminotransferase TNR units/L (7-56); Albumin TNR g/dL (3.9-5); BUN/Creatinine Ratio TNR; Calcium TNR mg/dL (8.4-10.2)
[2021-11-16 08:01] LABS: Hemolysis Index TNR
[2021-11-16] MEDS: MORPHINE 4 MG/1 ML INJ IV PRN (08:20)
[2021-11-16] MEDS: DOCUSATE SODIUM 100 MG CAP PO SCH ×2 (10:09→21:40)
[2021-11-16] MEDS: APIXABAN 2.5 MG TAB PO SCH ×2 (10:10→21:40)
[2021-11-16] MEDS: FAMOTIDINE 20 MG TAB PO SCH ×2 (10:10→21:40)
[2021-11-16 11:26] LABS: Alanine Aminotransferase 38 units/L (7-56); Albumin 3.1 g/dL (3.9-5); Blood Urea Nitrogen 6 mg/dL (7-17); Calcium 8.4 mg/dL (8.4-10.2); Hemolysis Index 0
[2021-11-16 11:28] LABS: BUN/Creatinine Ratio 12
--- NOTE | 2021-11-16 13:13 | Progress Note ---
<DESROBERT JasonBrandon - Last Filed: 11/16/21 13:09> Assessment and Plan Assessment and plan: Assessment and plan This is a 61-year-old female with cholangiocarcinoma s/p biliary drain placement and DVTs admitted with symptomatic anemia and sepsis Neuro: NAD -Reorientation as needed -Maintain sleep-wake cycle -As needed analgesia Cardiac: NAD -CCM consulted, appreciate recommendations -S/p vasopressor support with Levophed -Blood pressure monitoring per protocol Respiratory: NAD -Currently on room air -SPO2 monitor per protocol -Supplemental oxygen as needed -Pulmonary hygiene GI: Mild protein calorie malnutrition, transaminitis -Regular diet -PPI -Nutrition supplementation -BR: Colace -24 hours +845 ml -Trend LFTs : NAD -Monitor intake and output -Renally dose medication -Avoid nephrotoxic medication -Trend BMP ID: Sepsis (POA), lactic acidosis -Per patient patient had a biliary drain initially placed towards the end of 2020 which became clogged in June and was exchanged, catheter was exchanged again in October -Presented with fevers, purulent drainage from biliary drain site, hypotension, lactic acidosis -CT abdomen/pelvis showed large left hepatic mass with left ductal dilation and fluid collection -IR consulted, appreciate recommendations -S/p fluoroscopic guided evaluation of indwelling drainage catheter demonstrating cloudy drainage catheter, fluoroscopic guided exchange of indwelling biliary drain catheter with placement of new 10 [place] biliary drain catheter with prompt return of significant amounts of bilious fluid with small amount of blood-tinged fluid -S/p 3 L normal saline bolus -Antibiotic therapy with cefepime, Flagyl, vancomycin -f/u blood culture -Wound culture obtained in IR -Monitor WBC and temperature curve -Trend lactic acid Endo: NAD -Avoid hypoglycemia Heme: Symptomatic anemia -Trend CBC -Transfuse hemoglobin less than 7 -Admit H/H 6.3/19.9 -s/p 2 unit PRBC -SCDs to BLE while in bed The high probability of a clinically significant, sudden or life threatening deterioration of the [multi] system(s) required my full and direct attention, intervention and personal management. The aggregate critical care time was [60] minutes. 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 She stated over the past days she noted that the drainage from her wound site was purulent and she had abdominal pain at the insertion site. In the emergency department patient had a CT scan of abdomen/pelvis which showed large complex hepatic mass with resultant left duct dilation which represents clinical carcinoma and a complex collection in the anterior portion of the hepatic mass which continues to drain, and large node anterior to the left hepatic lobe. Surgery was consulted in the emergency department with stated there was no acute or emergent surgical intervention and suggested consult to them IR for possible intervention in a.m. Patient was admitted to the hospitalist service with symptomatic anemia and sepsis to the IMCU. Patient was given IV fluids and eventually needed to be started on Levophed and was transferred to ICU. CCM was consulted. Hospital course to date: 11/14: Patient has been weaned off of Levophed, was taken to IR suite with exchange of indwelling biliary drain catheter and placement of a new biliary drain catheter. Patient has been stable in the ICU and will be transferred to the floor. 11/15: Patient remained off levophed, drain is draining brown/bolanos fluid. Awaiting floor bed. 11/16: GRICELDA, remains stable. RN states there is increased drainage around the biliary drain, GNR has not speciated yet. Remains on abx. Hospitalist Physical - Constitutional Vitals: Temp Pulse Resp BP Pulse Ox 98.5 F 74 20 135/80 100 11/16/21 12:00 11/16/21 12:00 11/16/21 12:00 11/16/21 12:11/16/21 12:00 General appearance: Present: no acute distress, cachectic - EENT Eyes: Present: PERRL, EOM intact ENT: hearing intact, clear oral mucosa, dentition normal - Neck Neck: Present: normal ROM - Respiratory Respiratory effort: normal Respiratory: bilateral: CTA, diminished - Cardiovascular Rhythm: regular Heart Sounds: Present: S1 & S2. Absent: systolic murmur, diastolic murmur - Extremities Extremities: no ischemia, pulses intact, pulses symmetrical, No edema, normal temperature, normal color, Full ROM Peripheral Pulses: within normal limits - Abdominal General gastrointestinal: soft, non-tender - Integumentary Integumentary: Present: clear, warm (biliary drain with drainge around site, yellow/green) - Psychiatric Psychiatric: cooperative - Neurologic Neurologic: CNII-XII intact, no focal deficits, moves all extremities - Allied Health Allied health notes reviewed: nursing, RT Results - Labs CBC & Chem 7: 11/15/21 04:22 11/16/21 09:33 Labs: Laboratory Last Values WBC 7.0 K/mm3 (4.5-11.0) 11/15/21 04:22 RBC 3.51 M/mm3 (3.65-5.03) L 11/15/21 04:22 Hgb 9.2 gm/dl (10.1-14.3) L 11/15/21 04:22 Hct 28.9 % (30.3-42.9) L D 11/15/21 04:22 MCV 82 fl (79-97) 11/15/21 04:22 MCH 26 pg (28-32) L 11/15/21 04:22 MCHC 32 % (30-34) 11/15/21 04:22 RDW 18.8 % (13.2-15.2) H 11/15/21 04:22 Plt Count 196 K/mm3 (140-440) 11/15/21 04:22 Add Manual Diff Complete 11/15/21 04:22 Total Counted 100 11/15/21 04:22 Seg 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 11/14/21 02:50 Seg Neuts % (Manual) 87.0 % (40.0-70.0) H 11/15/21 04:22 Band Neutrophils % 1.0 % 11/15/21 04:22 Lymphocytes % (Manual) 7.0 % (13.4-35.0) L 11/15/21 04:22 Reactive Lymphs % (Man) 0 % 11/15/21 04:22 Monocytes % (Manual) 4.0 % (0.0-7.3) 11/15/21 04:22 Eosinophils % (Manual) 1.0 % (0.0-4.3) 11/15/21 04:22 Basophils % (Manual) 0 % (0.0-1.8) 11/15/21 04:22 Metamyelocytes % 0 % 11/15/21 04:22 Myelocytes % 0 % 11/15/21 04:22 Promyelocytes % 0 % 11/15/21 04:22 Blast Cells % 0 % 11/15/21 04:22 Nucleated RBC % Not Reportable 11/15/21 04:22 Seg Neutrophils # Man 6.1 K/mm3 (1.8-7.7) 11/15/21 04:22 Band Neutrophils # 0.1 K/mm3 11/15/21 04:22 Lymphocytes # (Manual) 0.5 K/mm3 (1.2-5.4) L 11/15/21 04:22 Abs React Lymphs (Man) 0.0 K/mm3 11/15/21 04:22 Monocytes # (Manual) 0.3 K/mm3 (0.0-0.8) 11/15/21 04:22 Eosinophils # (Manual) 0.1 K/mm3 (0.0-0.4) 11/15/21 04:22 Basophils # (Manual) 0.0 K/mm3 (0.0-0.1) 11/15/21 04:22 Metamyelocytes # 0.0 K/mm3 11/15/21 04:22 Myelocytes # 0.0 K/mm3 11/15/21 04:22 Promyelocytes # 0.0 K/mm3 11/15/21 04:22 Blast Cells # 0.0 K/mm3 11/15/21 04:22 WBC Morphology Not Reportable 11/15/21 04:22 Hypersegmented Neuts Not Reportable 11/15/21 04:22 Hyposegmented Neuts Not Reportable 11/15/21 04:22 Hypogranular Neuts Not Reportable 11/15/21 04:22 Smudge Cells Not Reportable 11/15/21 04:22 Toxic Granulation Not Reportable 11/15/21 04:22 Toxic Vacuolation Not Reportable 11/15/21 04:22 Dohle Bodies Not Reportable 11/15/21 04:22 Pelger-Huet Anomaly Not Reportable 11/15/21 04:22 Moises Rods Not Reportable 11/15/21 04:22 Platelet Estimate Consistent w auto 11/15/21 04:22 Clumped Platelets Not Reportable 11/15/21 04:22 Plt Clumps, EDTA Not Reportable 11/15/21 04:22 Large Platelets Not Reportable 11/15/21 04:22 Giant Platelets Not Reportable 11/15/21 04:22 Platelet Satelliting Not Reportable 11/15/21 04:22 Plt Morphology Comment Not Reportable 11/15/21 04:22 RBC Morphology Not Reportable 11/15/21 04:22 Dimorphic RBCs Not Reportable 11/15/21 04:22 Polychromasia Not Reportable 11/15/21 04:22 Hypochromasia 2+ 11/15/21 04:22 Poikilocytosis 1+ 11/15/21 04:22 Anisocytosis 1+ 11/15/21 04:22 Microcytosis Not Reportable 11/15/21 04:22 Macrocytosis Not Reportable 11/15/21 04:22 Spherocytes Not Reportable 11/15/21 04:22 Pappenheimer Bodies Not Reportable 11/15/21 04:22 Sickle Cells Not Reportable 11/15/21 04:22 Target Cells Not Reportable 11/15/21 04:22 Tear Drop Cells Not Reportable 11/15/21 04:22 Ovalocytes Few 11/15/21 04:22 Helmet Cells Not Reportable 11/15/21 04:22 [place] Bodies Not Reportable 11/15/21 04:22 [place] Rings Not Reportable 11/15/21 04:22 Martin Cells Not Reportable 11/15/21 04:22 Bite Cells Not Reportable 11/15/21 04:22 Crenated Cell Not Reportable 11/15/21 04:22 Elliptocytes Few 11/15/21 04:22 Acanthocytes (Spur) Not Reportable 11/15/21 04:22 Rouleaux Not Reportable 11/15/21 04:22 Hemoglobin C Crystals Not Reportable 11/15/21 04:22 Schistocytes Not Reportable 11/15/21 04:22 Malaria parasites Not Reportable 11/15/21 04:22 David Bodies Not Reportable 11/15/21 04:22 Hem Pathologist Commnt No 11/15/21 04:22 PT 17.9 Sec. (12.2-14.9) H 11/14/21 04:13 INR 1.32 (0.87-1.13) H 11/14/21 04:13 APTT 27.9 Sec. (24.2-36.6) 11/14/21 04:13 Sodium 140 mmol/L (137-145) 11/16/21 09:33 Potassium 4.3 mmol/L (3.6-5.0) 11/16/21 09:33 Chloride 106.3 mmol/L (98-107) 11/16/21 09:33 Carbon Dioxide 23 mmol/L (22-30) 11/16/21 09:33 Anion Gap 15 mmol/L 11/16/21 09:33 BUN 6 mg/dL (7-17) L 11/16/21 09:33 Creatinine 0.5 mg/dL (0.6-1.2) L 11/16/21 09:33 Estimated GFR > 60 ml/min 11/16/21 09:33 BUN/Creatinine Ratio 12 % 11/16/21 09:33 Glucose 100 mg/dL (65-100) 11/16/21 09:33 Lactic Acid 0.90 mmol/L (0.7-2.0) 11/16/21 05:38 Calcium 8.4 mg/dL (8.4-10.2) 11/16/21 09:33 Total Bilirubin 0.60 mg/dL (0.1-1.2) 11/16/21 09:33 AST 32 units/L (5-40) 11/16/21 09:33 ALT 38 units/L (7-56) 11/16/21 09:33 Alkaline Phosphatase 221 units/L (35-129) H 11/16/21 09:33 Total Protein 5.9 g/dL (6.3-8.2) L 11/16/21 09:33 Albumin 3.1 g/dL (3.9-5) L 11/16/21 09:33 Albumin/Globulin Ratio 1.1 % 11/16/21 09:33 Lipase 19 units/L (13-60) 11/14/21 02:50 Blood Type AB POSITIVE 11/14/21 04:25 Antibody Screen Negative 11/14/21 04:25 Crossmatch See Detail 11/14/21 04:25 Microbiology: Microbiology 11/14/21 02:50 Peripheral/Venous Blood Culture - Preliminary NO GROWTH AFTER 48 HOURS 11/14/21 02:43 Peripheral/Venous Blood Culture - Preliminary NO GROWTH AFTER 48 HOURS 11/14/21 11:02 Paul Drain Wound Culture - Preliminary Gram Negative Bebeto 11/14/21 11:02 Bile Fluid Surgical Culture - Preliminary Gram Negative Bebeto Carcamo/IV: Voiding Method External Female Catheter Active Medications - Current Medications Current Medications: Generic Name Dose Route Start Last Admin Trade Name Freq PRN Reason Stop Dose Admin Acetaminophen 650 mg 11/14/21 05:35 11/14/21 14:06 Acetaminophen 325 Mg Tab PO 650 mg Q4H PRN Administration Pain MILD(1-3)/Fever >100.5/CHING Albuterol 2.5 mg 11/14/21 05:35 Albuterol 2.5 Mg/3 Ml Nebu IH Q3HRT PRN Shortness Of Breath Apixaban 2.5 mg 11/15/21 10:00 11/16/21 10:10 Apixaban 2.5 Mg Tab PO 2.5 mg Q12HR VANESSA Administration Protocol Docusate Sodium 100 mg 11/14/21 22:00 11/16/21 10:09 Docusate Sodium 100 Mg Cap PO Not Given BID VANESSA Famotidine 20 mg 11/15/21 10:00 11/16/21 10:10 Famotidine 20 Mg Tab PO 20 mg BID VANESSA Administration Cefepime HCl 2 gm in 100 mls @ 200 mls/hr 11/14/21 11:00 11/16/21 10:10 Cefepime/Ns 2 Gm/100 Ml IV 200 mls/hr Q8H VANESSA Administration Protocol Morphine Sulfate 2 mg 11/14/21 05:35 11/15/21 23:51 Morphine 2 Mg/1 Ml Inj IV 2 mg Q4H PRN Administration Pain, Moderate (4-6) Morphine Sulfate 4 mg 11/14/21 05:35 11/16/21 08:20 Morphine 4 Mg/1 Ml Inj IV 4 mg Q4H PRN Administration Pain , Severe (7-10) Ondansetron HCl 4 mg 11/14/21 05:35 11/15/21 17:23 Ondansetron 4 Mg/2 Ml Inj IV 4 mg Q8H PRN Administration Nausea And Vomiting Sodium Chloride 10 ml 11/14/21 10:00 11/16/21 10:10 Sodium Chloride 0.9% 10 Ml Flush Syringe IV 10 ml BID VANESSA Administration Sodium Chloride 10 ml 11/14/21 05:35 Sodium Chloride 0.9% 10 Ml Flush Syringe IV PRN PRN LINE FLUSH Nutrition/Malnutrition Assess - Dietary Evaluation Nutrition/Malnutrition Findings: Nutrition Notes Start: 11/15/21 15:1 3 Freq: Status: Active Protocol: Document 11/15/21 15:13 ALDEN (Rec: 11/15/21 15:41 ALDEN [id number]) Nutrition Notes Need for Assessment generated from: MD Order,global cmo,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 Current Diet Regular Diet + D Suppl (since B 11/15). Labs/Tests 11/15: Cl 111.5, Crea 0.4. Pertinent Medications 11/15: Nutritionally unremarkable. 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 Weight Status Underweight Subjective/Other Information RD consult for risk of malnutrition, Low BMI, and dietary supplementation assessments. Pt advanced to PO, No reports available on Pt's PO intake of meals at the time, will assess at F/U. I will prescribe dietary supplementation to compensate for possible poor or insufficient PO intake of meals. Pt is on Room Air, O2 saturation @ 98%, according to Physical Assessment History notes. Procedure on 11/14: Exchange of indwelling biliary drainage catheter, well tolerated, according to Operative Report notes. Pt shows no signs of concern for risk of malnutrition at the time, according to Physical Assessment History notes. Pt's Low BMI seems to correspond to a natural body composition, and not related to a sudden loss of body weight nor chronic malnutrition, since no signs of concern were mentioned in the Physical Assessment History or the Progress notes. Percent of energy/protein needs met: Prescribed Regular Diet provides for energy/protein needs (2,289 Kcal/89 g) during LOS; additionally, Dietary Supplements will compensate for possible poor or insufficient PO intake of meals with 320 Kcal and 32 g of protein. Burn Absent Trauma Absent GI Symptoms None Food Allergy Yes Skin Integrity/Comment Abdominal surgical wound. Minimum of two criteria No Fluid Accumulation N/A Reduced Materials Analyst Strength N/A (non-severe) Protein-Calorie Malnutrition N\A #1 Nutrition Diagnosis Predicted suboptimal energy intake Etiology Cholangiocarcinoma. As Evidenced by Signs and Symptoms Low BMI, Anemia. Is patient on ventilator? No Is Patient Ambulatory and/or Out of Bed Yes REE-([place]-St Jeor-ambulatory/OOB) [ 1467.219 NUTR.MSJOOB] Kcal/Kg value to use for calculation 33 Approximate Energy Requirements Using 1719 kcal/Kg Calculation Used for Recommendations Kcal/kg Additional Notes Protein: 1.5-2 g/Kg ABW; 78- 104 g/day. Fluids: 1 ml/Kcal, or as per MD. Nutrition Intervention Change Diet Order: Continue Regular Diet. Add Supplement/Snack (indicate name/kcal Start 8 fl oz Ensure High /protein ) Protein; BID. Provides kCal: 320 Provides Protein (gm) 32 Goal #1 Compensate, through dietary supplementation, for possible poor or insufficient PO intake of meals during LOS. Goal #2 Adjust the dietary intervention to better serve Pt's needs and clinical conditions during LOS. Follow-Up By: 11/22/21 Additional Comments Continue monitoring food tolerance, %PO intake of meals and ONS, and BM. <TRISTIN CRUZ - Last Filed: 11/19/21 13:27> History Interval history: I saw and evaluated the patient. Discussed with the nurse practitioner and agree with their findings and plan as documented in this note. Hospitalist Physical - Constitutional Vitals: Temp Pulse Resp BP Pulse Ox 98.9 F 112 H 16 139/76 100 11/18/21 10:33 11/18/21 10:33 11/18/21 10:33 11/18/21 10:33 11/18/21 10:33 Results - Labs CBC & Chem 7: 11/17/21 04:26 11/18/21 05:13 Labs: Laboratory Last Values WBC 6.0 K/mm3 (4.5-11.0) 11/17/21 04:26 RBC 3.70 M/mm3 (3.65-5.03) 11/17/21 04:26 Hgb 9.6 gm/dl (10.1-14.3) L 11/17/21 04:26 Hct 30.2 % (30.3-42.9) L 11/17/21 04:26 MCV 82 fl (79-97) 11/17/21 04:26 MCH 26 pg (28-32) L 11/17/21 04:26 MCHC 32 % (30-34) 11/17/21 04:26 RDW 18.7 % (13.2-15.2) H 11/17/21 04:26 Plt Count 217 K/mm3 (140-440) 11/17/21 04:26 Add Manual Diff Complete 11/15/21 04:22 Total Counted 100 11/15/21 04:22 Seg 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 11/14/21 02:50 Seg Neuts % (Manual) 87.0 % (40.0-70.0) H 11/15/21 04:22 Band Neutrophils % 1.0 % 11/15/21 04:22 Lymphocytes % (Manual) 7.0 % (13.4-35.0) L 11/15/21 04:22 Reactive Lymphs % (Man) 0 % 11/15/21 04:22 Monocytes % (Manual) 4.0 % (0.0-7.3) 11/15/21 04:22 Eosinophils % (Manual) 1.0 % (0.0-4.3) 11/15/21 04:22 Basophils % (Manual) 0 % (0.0-1.8) 11/15/21 04:22 Metamyelocytes % 0 % 11/15/21 04:22 Myelocytes % 0 % 11/15/21 04:22 Promyelocytes % 0 % 11/15/21 04:22 Blast Cells % 0 % 11/15/21 04:22 Nucleated RBC % Not Reportable 11/15/21 04:22 Seg Neutrophils # Man 6.1 K/mm3 (1.8-7.7) 11/15/21 04:22 Band Neutrophils # 0.1 K/mm3 11/15/21 04:22 Lymphocytes # (Manual) 0.5 K/mm3 (1.2-5.4) L 11/15/21 04:22 Abs React Lymphs (Man) 0.0 K/mm3 11/15/21 04:22 Monocytes # (Manual) 0.3 K/mm3 (0.0-0.8) 11/15/21 04:22 Eosinophils # (Manual) 0.1 K/mm3 (0.0-0.4) 11/15/21 04:22 Basophils # (Manual) 0.0 K/mm3 (0.0-0.1) 11/15/21 04:22 Metamyelocytes # 0.0 K/mm3 11/15/21 04:22 Myelocytes # 0.0 K/mm3 11/15/21 04:22 Promyelocytes # 0.0 K/mm3 11/15/21 04:22 Blast Cells # 0.0 K/mm3 11/15/21 04:22 WBC Morphology Not Reportable 11/15/21 04:22 Hypersegmented Neuts Not Reportable 11/15/21 04:22 Hyposegmented Neuts Not Reportable 11/15/21 04:22 Hypogranular Neuts Not Reportable 11/15/21 04:22 Smudge Cells Not Reportable 11/15/21 04:22 Toxic Granulation Not Reportable 11/15/21 04:22 Toxic Vacuolation Not Reportable 11/15/21 04:22 Dohle Bodies Not Reportable 11/15/21 04:22 Pelger-Huet Anomaly Not Reportable 11/15/21 04:22 Moises Rods Not Reportable 11/15/21 04:22 Platelet Estimate Consistent w auto 11/15/21 04:22 Clumped Platelets Not Reportable 11/15/21 04:22 Plt Clumps, EDTA Not Reportable 11/15/21 04:22 Large Platelets Not Reportable 11/15/21 04:22 Giant Platelets Not Reportable 11/15/21 04:22 Platelet Satelliting Not Reportable 11/15/21 04:22 Plt Morphology Comment Not Reportable 11/15/21 04:22 RBC Morphology Not Reportable 11/15/21 04:22 Dimorphic RBCs Not Reportable 11/15/21 04:22 Polychromasia Not Reportable 11/15/21 04:22 Hypochromasia 2+ 11/15/21 04:22 Poikilocytosis 1+ 11/15/21 04:22 Anisocytosis 1+ 11/15/21 04:22 Microcytosis Not Reportable 11/15/21 04:22 Macrocytosis Not Reportable 11/15/21 04:22 Spherocytes Not Reportable 11/15/21 04:22 Pappenheimer Bodies Not Reportable 11/15/21 04:22 Sickle Cells Not Reportable 11/15/21 04:22 Target Cells Not Reportable 11/15/21 04:22 Tear Drop Cells Not Reportable 11/15/21 04:22 Ovalocytes Few 11/15/21 04:22 Helmet Cells Not Reportable 11/15/21 04:22 [place] Bodies Not Reportable 11/15/21 04:22 [place] Rings Not Reportable 11/15/21 04:22 Martin Cells Not Reportable 11/15/21 04:22 Bite Cells Not Reportable 11/15/21 04:22 Crenated Cell Not Reportable 11/15/21 04:22 Elliptocytes Few 11/15/21 04:22 Acanthocytes (Spur) Not Reportable 11/15/21 04:22 Rouleaux Not Reportable 11/15/21 04:22 Hemoglobin C Crystals Not Reportable 11/15/21 04:22 Schistocytes Not Reportable 11/15/21 04:22 Malaria parasites Not Reportable 11/15/21 04:22 David Bodies Not Reportable 11/15/21 04:22 Hem Pathologist Commnt No 11/15/21 04:22 PT 17.9 Sec. (12.2-14.9) H 11/14/21 04:13 INR 1.32 (0.87-1.13) H 11/14/21 04:13 APTT 27.9 Sec. (24.2-36.6) 11/14/21 04:13 Sodium 140 mmol/L (137-145) 11/16/21 09:33 Potassium 4.3 mmol/L (3.6-5.0) 11/16/21 09:33 Chloride 106.3 mmol/L (98-107) 11/16/21 09:33 Carbon Dioxide 23 mmol/L (22-30) 11/16/21 09:33 Anion Gap 15 mmol/L 11/16/21 09:33 BUN 6 mg/dL (7-17) L 11/16/21 09:33 Creatinine 0.3 mg/dL (0.6-1.2) L 11/18/21 05:13 Estimated GFR > 60 ml/min 11/18/21 05:13 BUN/Creatinine Ratio 12 % 11/16/21 09:33 Glucose 100 mg/dL (65-100) 11/16/21 09:33 Lactic Acid 1.70 mmol/L (0.7-2.0) 11/16/21 15:39 Calcium 8.4 mg/dL (8.4-10.2) 11/16/21 09:33 Total Bilirubin 0.50 mg/dL (0.1-1.2) 11/16/21 15:39 Direct Bilirubin 0.2 mg/dL (0-0.2) 11/16/21 15:39 Indirect Bilirubin 0.3 mg/dL 11/16/21 15:39 AST 28 units/L (5-40) 11/16/21 15:39 ALT 30 units/L (7-56) 11/16/21 15:39 Alkaline Phosphatase 184 units/L (35-129) H 11/16/21 15:39 Total Protein 5.7 g/dL (6.3-8.2) L 11/16/21 15:39 Albumin 2.3 g/dL (3.9-5) L 11/16/21 15:39 Albumin/Globulin Ratio 0.7 % 11/16/21 15:39 Lipase 19 units/L (13-60) 11/14/21 02:50 Blood Type AB POSITIVE 11/14/21 04:25 Antibody Screen Negative 11/14/21 04:25 Crossmatch See Detail 11/14/21 04:25 Microbiology: Microbiology 11/14/21 02:43 Peripheral/Venous Blood Culture - Final NO GROWTH AFTER 5 DAYS 11/14/21 02:50 Peripheral/Venous Blood Culture - Final NO GROWTH AFTER 5 DAYS 11/14/21 11:02 Paul Drain Wound Culture - Final Klebsiella Oxytoca Enterococcus Faecalis 11/14/21 11:02 Bile Fluid Surgical Culture - Final Klebsiella Oxytoca Enterococcus Faecalis Carcamo/IV: Voiding Method Toilet Nutrition/Malnutrition Assess - Dietary Evaluation Nutrition/Malnutrition Findings: Nutrition Notes Start: 11/15/21 15:13 Freq: Status: Discharge Protocol: Document 11/15/21 15:13 ALDEN (Rec: 11/15/21 15:41 ALDEN [id number]) Nutrition Notes Need for Assessment generated from: MD Order,global cmo,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 Current Diet Regular Diet + D Suppl (since B 11/15). Labs/Tests 11/15: Cl 111.5, Crea 0.4. Pertinent Medications 11/15: Nutritionally unremarkable. 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 Weight Status Underweight Subjective/Other Information RD consult for risk of malnutrition, Low BMI, and dietary supplementation assessments. Pt advanced to PO, No reports available on Pt's PO intake of meals at the time, will assess at F/U. I will prescribe dietary supplementation to compensate for possible poor or insufficient PO intake of meals. Pt is on Room Air, O2 saturation @ 98%, according to Physical Assessment History notes. Procedure on 11/14: Exchange of indwelling biliary drainage catheter, well tolerated, according to Operative Report notes. Pt shows no signs of concern for risk of malnutrition at the time, according to Physical Assessment History notes. Pt's Low BMI seems to correspond to a natural body composition, and not related to a sudden loss of body weight nor chronic malnutrition, since no signs of concern were mentioned in the Physical Assessment History or the Progress notes. Percent of energy/protein needs met: Prescribed Regular Diet provides for energy/protein needs (2,289 Kcal/89 g) during LOS; additionally, Dietary Supplements will compensate for possible poor or insufficient PO intake of meals with 320 Kcal and 32 g of protein. Burn Absent Trauma Absent GI Symptoms None Food Allergy Yes Skin Integrity/Comment Abdominal surgical wound. Minimum of two criteria No Fluid Accumulation N/A Reduced Materials Analyst Strength N/A (non-severe) Protein-Calorie Malnutrition N\A #1 Nutrition Diagnosis Predicted suboptimal energy intake Etiology Cholangiocarcinoma. As Evidenced by Signs and Symptoms Low BMI, Anemia. Is patient on ventilator? No Is Patient Ambulatory and/or Out of Bed Yes REE-([place]-St[place] Jeor-ambulatory/OOB) [ 1467.219 NUTR.MSJOOB] Kcal/Kg value to use for calculation 33 Approximate Energy Requirements Using 1719 kcal/Kg Calculation Used for Recommendations Kcal/kg Additional Notes Protein: 1.5-2 g/Kg ABW; 78- 104 g/day. Fluids: 1 ml/Kcal, or as per MD. Nutrition Intervention Change Diet Order: Continue Regular Diet. Add Supplement/Snack (indicate name/kcal Start 8 fl oz Ensure High /protein ) Protein; BID. Provides kCal: 320 Provides Protein (gm) 32 Goal #1 Compensate, through dietary supplementation, for possible poor or insufficient PO intake of meals during LOS. Goal #2 Adjust the dietary intervention to better serve Pt's needs and clinical conditions during LOS. Follow-Up By: 11/22/21 Additional Comments Continue monitoring food tolerance, %PO intake of meals and ONS, and BM.
[2021-11-16 17:13] LABS: Albumin 2.3 g/dL (3.9-5); Bilirubin,Direct 0.2 mg/dL (0-0.2)
[2021-11-16] MEDS: MORPHINE 2 MG/1 ML INJ IV PRN (17:35)
[2021-11-17] MEDS: MORPHINE 4 MG/1 ML INJ IV PRN (00:41)
[2021-11-17] MEDS: CEFEPIME/NS 2 GM/100 ML 2 GM/100 ML BAG IV SCH ×3 (03:04→19:07)
[2021-11-17 05:24] LABS: Hematocrit 30.2 % (30.3-42.9); Hemoglobin 9.6 gm/dl (10.1-14.3); Mean Corpuscular HGB Conc 32 % (30-34); Mean Corpuscular Volume 82 fl (79-97); Platelet Count 217 K/mm3 (140-440); Red Cell Distribution Width 18.7 % (13.2-15.2)
[2021-11-17] MEDS: APIXABAN 2.5 MG TAB PO SCH ×2 (09:07→21:52)
[2021-11-17] MEDS: FAMOTIDINE 20 MG TAB PO SCH ×2 (09:07→21:52)
[2021-11-17] MEDS: DOCUSATE SODIUM 100 MG CAP PO SCH ×2 (09:07→21:52)
--- NOTE | 2021-11-17 09:18 | Progress Note ---
Assessment and Plan Assessment and plan: History Interval history: This is a 61-year-old female with cholangiocarcinoma status post radiation with embolization ablation and biliary drain placement, DVT on home Eliquis since 2007 who presented to emergency department on 11/14 with complaints of body aches, fevers, chills and increased drainage from her biliary drain site which was said to be purulent. She stated over the past days she noted that the drainage from her wound site was purulent and she had abdominal pain at the insertion site. In the emergency department patient had a CT scan of abdome n/pelvis which showed large complex hepatic mass with resultant left duct dilation which represents clinical carcinoma and a complex collection in the anterior portion of the hepatic mass which continues to drain, and large node anterior to the left hepatic lobe. Surgery was consulted in the emergency department with stated there was no acute or emergent surgical intervention and suggested consult to them IR for possible intervention in a.m. Patient was admitted to the hospitalist service with symptomatic anemia and sepsis to the IMCU. Patient was given IV fluids and eventually needed to be started on Levophed and was transferred to ICU. CCM was consulted. Hospital course to date: 11/14: Patient has been weaned off of Levophed, was taken to IR suite with exch tony of indwelling biliary drain catheter and placement of a new biliary drain catheter. Patient has been stable in the ICU and will be transferred to the floor. 11/15: Patient remained off levophed, drain is draining brown/bolanos fluid. Awaiting floor bed. 11/16: GRICELDA, remains stable. RN states there is increased drainage around the biliary drain, GNR has not speciated yet. Remains on abx. 11/17: Wound and surgical cx growing klebsiella Oxytoca. Continue Cefepime IV. Will await sensitivities. Anticipate d/c in next 24-48 hrs. Neuro: NAD -Reorientation as needed -Maintain sleep-wake cycle -As needed analgesia Cardiac: NAD -CCM consulted, appreciate recommendations -S/p vasopressor support with Levophed -Blood pressure monitoring per protocol Respiratory: NAD -Currently on room air -SPO2 monitor per protocol -Supplemental oxygen as needed -Pulmonary hygiene GI: Mild protein calorie malnutrition, transaminitis -Regular diet -PPI -Nutrition supplementation -BR: Colace -24 hours +845 ml -Trend LFTs : NAD -Monitor intake and output -Renally dose medication -Avoid nephrotoxic medication -Trend BMP ID: Sepsis (POA), lactic acidosis -Per patient patient had a biliary drain initially placed towards the end of 2020 which became clogged in June and was exchanged, catheter was exchanged again in October. Take ciprofloxacin for chronic suppression however had been missing a few doses leading up to admission -Presented with fevers, purulent drainage from biliary drain site, hypotension, lactic acidosis -CT abdomen/pelvis showed large left hepatic mass with left ductal dilation and fluid collection -IR consulted, appreciate recommendations -S/p fluoroscopic guided evaluation of indwelling drainage catheter demonstrating cloudy drainage catheter, fluoroscopic guided exchange of indwelling biliary drain catheter with placement of new 10 [place] biliary drain catheter with prompt return of significant amounts of bilious fluid with small amount of blood-tinged fluid -S/p 3 L normal saline bolus -Antibiotic therapy with cefepime IV -f/u blood culture -Wound/surgical culture obtained by IR: both growing Klebsiella oxytoca -Monitor WBC and temperature curve -Trend lactic acid Endo: NAD -Avoid hypoglycemia Heme: Symptomatic anemia -Trend CBC -Transfuse hemoglobin less than 7 -Admit H/H 6.3/19.9 -s/p 2 unit PRBC -SCDs to BLE while in bed #Advance care planning Disease education conducted, care plan discussed, diagnoses discussed, prognosis discussed, patient is full code, patient acknowledges understanding and agree with care plan, +30 minutes. Total Time Spent with Patient (Minutes): 45 Total Time Spent with Patient (Minutes): 45 History Interval history: No acute complaints today. Patient inquiring about when she can go home. I discussed the results of the surgical and wound culture and the need for follow- up on sensitivities. She also inquired about drainage from around her tube yesterday. Upon examination the drain dressing was not saturated today and out put from the drain was adequate and did not appear to be obstructed. Hospitalist Physical - Physical exam Narrative exam: General appearance: Present: no acute distress, cachectic - EENT Eyes: Present: PERRL, EOM intact ENT: hearing intact, clear oral mucosa, dentition normal - Neck Neck: Present: normal ROM - Respiratory Respiratory effort: normal Respiratory: bilateral: CTA, diminished - Cardiovascular Rhythm: regular Heart Sounds: Present: S1 & S2. Absent: systolic murmur, diastolic murmur - Extremities Extremities: no ischemia, pulses intact, pulses symmetrical, No edema, normal temperature, normal color, Full ROM Peripheral Pulses: within normal limits - Abdominal General gastrointestinal: soft, non-tender - Integumentary Integumentary: Present: clear, warm (biliary drain with drainge around site, yellow/green) - Psychiatric Psychiatric: cooperative - Neurologic Neurologic: CNII-XII intact, no focal deficits, moves all extremities - Allied Health Allied health notes reviewed: nursing, RT - Constitutional Vitals: Temp Pulse Resp BP Pulse Ox 99.0 F 67 16 148/81 100 11/17/21 04:42 11/17/21 04:42 11/17/21 04:42 11/17/21 04:42 11/17/21 04:42 General appearance: Present: no acute distress, cachectic Results - Labs CBC & Chem 7: 11/17/21 04:26 11/16/21 09:33 Labs: Laboratory Last Values WBC 6.0 K/mm3 (4.5-11.0) 11/17/21 04:26 RBC 3.70 M/mm3 (3.65-5.03) 11/17/21 04:26 Hgb 9.6 gm/dl (10.1-14.3) L 11/17/21 04:26 Hct 30.2 % (30.3-42.9) L 11/17/21 04:26 MCV 82 fl (79-97) 11/17/21 04:26 MCH 26 pg (28-32) L 11/17/21 04:26 MCHC 32 % (30-34) 11/17/21 04:26 RDW 18.7 % (13.2-15.2) H 11/17/21 04:26 Plt Count 217 K/mm3 (140-440) 11/17/21 04:26 Add Manual Diff Complete 11/15/21 04:22 Total Counted 100 11/15/21 04:22 Seg Neutrophils % Bottle Washer Machine 11/14/21 02:50 Seg Neuts % (Manual) 87.0 % (40.0-70.0) H 11/15/21 04:22 Band Neutrophils % 1.0 % 11/15/21 04:22 Lymphocytes % (Manual) 7.0 % (13.4-35.0) L 11/15/21 04:22 Reactive Lymphs % (Man) 0 % 11/15/21 04:22 Monocytes % (Manual) 4.0 % (0.0-7.3) 11/15/21 04:22 Eosinophils % (Manual) 1.0 % (0.0-4.3) 11/15/21 04:22 Basophils % (Manual) 0 % (0.0-1.8) 11/15/21 04:22 Metamyelocytes % 0 % 11/15/21 04:22 Myelocytes % 0 % 11/15/21 04:22 Promyelocytes % 0 % 11/15/21 04:22 Blast Cells % 0 % 11/15/21 04:22 Nucleated RBC % Not Reportable 11/15/21 04:22 Seg Neutrophils # Man 6.1 K/mm3 (1.8-7.7) 11/15/21 04:22 Band Neutrophils # 0.1 K/mm3 11/15/21 04:22 Lymphocytes # (Manual) 0.5 K/mm3 (1.2-5.4) L 11/15/21 04:22 Abs React Lymphs (Man) 0.0 K/mm3 11/15/21 04:22 Monocytes # (Manual) 0.3 K/mm3 (0.0-0.8) 11/15/21 04:22 Eosinophils # (Manual) 0.1 K/mm3 (0.0-0.4) 11/15/21 04:22 Basophils # (Manual) 0.0 K/mm3 (0.0-0.1) 11/15/21 04:22 Metamyelocytes # 0.0 K/mm3 11/15/21 04:22 Myelocytes # 0.0 K/mm3 11/15/21 04:22 Promyelocytes # 0.0 K/mm3 11/15/21 04:22 Blast Cells # 0.0 K/mm3 11/15/21 04:22 WBC Morphology Not Reportable 11/15/21 04:22 Hypersegmented Neuts Not Reportable 11/15/21 04:22 Hyposegmented Neuts Not Reportable 11/15/21 04:22 Hypogranular Neuts Not Reportable 11/15/21 04:22 Smudge Cells Not Reportable 11/15/21 04:22 Toxic Granulation Not Reportable 11/15/21 04:22 Toxic Vacuolation Not Reportable 11/15/21 04:22 Dohle Bodies Not Reportable 11/15/21 04:22 Pelger-Huet Anomaly Not Reportable 11/15/21 04:22 Moises Rods Not Reportable 11/15/21 04:22 Platelet Estimate Consistent w auto 11/15/21 04:22 Clumped Platelets Not Reportable 11/15/21 04:22 Plt Clumps, EDTA Not Reportable 11/15/21 04:22 Large Platelets Not Reportable 11/15/21 04:22 Giant Platelets Not Reportable 11/15/21 04:22 Platelet Satelliting Not Reportable 11/15/21 04:22 Plt Morphology Comment Not Reportable 11/15/21 04:22 RBC Morphology Not Reportable 11/15/21 04:22 Dimorphic RBCs Not Reportable 11/15/21 04:22 Polychromasia Not Reportable 11/15/21 04:22 Hypochromasia 2+ 11/15/21 04:22 Poikilocytosis 1+ 11/15/21 04:22 Anisocytosis 1+ 11/15/21 04:22 Microcytosis Not Reportable 11/15/21 04:22 Macrocytosis Not Reportable 11/15/21 04:22 Spherocytes Not Reportable 11/15/21 04:22 Pappenheimer Bodies Not Reportable 11/15/21 04:22 Sickle Cells Not Reportable 11/15/21 04:22 Target Cells Not Reportable 11/15/21 04:22 Tear Drop Cells Not Reportable 11/15/21 04:22 Ovalocytes Few 11/15/21 04:22 Helmet Cells Not Reportable 11/15/21 04:22 [place] Bodies Not Reportable 11/15/21 04:22 [place] Rings Not Reportable 11/15/21 04:22 [place] Cells Not Reportable 11/15/21 04:22 Bite Cells Not Reportable 11/15/21 04:22 Crenated Cell Not Reportable 11/15/21 04:22 Elliptocytes Few 11/15/21 04:22 Acanthocytes (Spur) Not Reportable 11/15/21 04:22 Rouleaux Not Reportable 11/15/21 04:22 Hemoglobin C Crystals Not Reportable 11/15/21 04:22 Schistocytes Not Reportable 11/15/21 04:22 Malaria parasites Not Reportable 11/15/21 04:22 David Bodies Not Reportable 11/15/21 04:22 Hem Pathologist Commnt No 11/15/21 04:22 PT 17.9 Sec. (12.2-14.9) H 11/14/21 04:13 INR 1.32 (0.87-1.13) H 11/14/21 04:13 APTT 27.9 Sec. (24.2-36.6) 11/14/21 04:13 Sodium 140 mmol/L (137-145) 11/16/21 09:33 Potassium 4.3 mmol/L (3.6-5.0) 11/16/21 09:33 Chloride 106.3 mmol/L (98-107) 11/16/21 09:33 Carbon Dioxide 23 mmol/L (22-30) 11/16/21 09:33 Anion Gap 15 mmol/L 11/16/21 09:33 BUN 6 mg/dL (7-17) L 11/16/21 09:33 Creatinine 0.5 mg/dL (0.6-1.2) L 11/16/21 09:33 Estimated GFR > 60 ml/min 11/16/21 09:33 BUN/Creatinine Ratio 12 % 11/16/21 09:33 Glucose 100 mg/dL (65-100) 11/16/21 09:33 Lactic Acid 1.70 mmol/L (0.7-2.0) 11/16/21 15:39 Calcium 8.4 mg/dL (8.4-10.2) 11/16/21 09:33 Total Bilirubin 0.50 mg/dL (0.1-1.2) 11/16/21 15:39 Direct Bilirubin 0.2 mg/dL (0-0.2) 11/16/21 15:39 Indirect Bilirubin 0.3 mg/dL 11/16/21 15:39 AST 28 units/L (5-40) 11/16/21 15:39 ALT 30 units/L (7-56) 11/16/21 15:39 Alkaline Phosphatase 184 units/L (35-129) H 11/16/21 15:39 Total Protein 5.7 g/dL (6.3-8.2) L 11/16/21 15:39 Albumin 2.3 g/dL (3.9-5) L 11/16/21 15:39 Albumin/Globulin Ratio 0.7 % 11/16/21 15:39 Lipase 19 units/L (13-60) 11/14/21 02:50 Blood Type AB POSITIVE 11/14/21 04:25 Antibody Screen Negative 11/14/21 04:25 Crossmatch See Detail 11/14/21 04:25 Microbiology: Microbiology 11/14/21 11:02 Paul Drain Wound Culture - Preliminary Klebsiella Oxytoca 11/14/21 11:02 Bile Fluid Surgical Culture - Preliminary Klebsiella Oxytoca 11/14/21 02:50 Peripheral/Venous Blood Culture - Preliminary NO GROWTH AFTER 48 HOURS 11/14/21 02:43 Peripheral/Venous Blood Culture - Preliminary NO GROWTH AFTER 48 HOURS [place]/IV: Voiding Method Toilet Active Medications - Current Medications Current Medications: Generic Name Dose Route Start Last Admin Trade Name Freq PRN Reason Stop Dose Admin Acetaminophen 650 mg 11/14/21 05:35 11/14/21 14:06 Acetaminophen 325 Mg Tab PO 650 mg Q4H PRN Administration Pain MILD(1-3)/Fever >100.5/CHING Albuterol 2.5 mg 11/14/21 05:35 Albuterol 2.5 Mg/3 Ml Nebu IH Q3HRT PRN Shortness Of Breath Apixaban 2.5 mg 11/15/21 10:00 11/17/21 09:07 Apixaban 2.5 Mg Tab PO 2.5 mg Q12HR VANESSA Administration Protocol Docusate Sodium 100 mg 11/14/21 22:00 11/17/21 09:07 Docusate Sodium 100 Mg Cap PO 100 mg BID VANESSA Administration Famotidine 20 mg 11/15/21 10:00 11/17/21 09:07 Famotidine 20 Mg Tab PO 20 mg BID VANESSA Administration Cefepime HCl 2 gm in 100 mls @ 200 mls/hr 11/14/21 11:00 11/17/21 03:04 Cefepime/Ns 2 Gm/100 Ml IV 200 mls/hr Q8H VANESSA Administration Protocol Morphine Sulfate 2 mg 11/14/21 05:35 11/16/21 17:35 Morphine 2 Mg/1 Ml Inj IV 2 mg Q4H PRN Administration Pain, Moderate (4-6) Morphine Sulfate 4 mg 11/14/21 05:35 11/17/21 00:41 Morphine 4 Mg/1 Ml Inj IV 4 mg Q4H PRN Administration Pain , Severe (7-10) Ondansetron HCl 4 mg 11/14/21 05:35 11/15/21 17:23 Ondansetron 4 Mg/2 Ml Inj IV 4 mg Q8H PRN Administration Nausea And Vomiting Sodium Chloride 10 ml 11/14/21 10:00 11/17/21 09:07 Sodium Chloride 0.9% 10 Ml Flush Syringe IV 10 ml BID VANESSA Administration Sodium Chloride 10 ml 11/14/21 05:35 Sodium Chloride 0.9% 10 Ml Flush Syringe IV PRN PRN LINE FLUSH Nutrition/Malnutrition Assess - Dietary Evaluation Nutrition/Malnutrition Findings: Nutrition Notes Start: 11/15/21 15:13 Freq: Status: Active Protocol: Document 11/15/21 15:13 ALDEN (Rec: 11/15/21 15:41 ALDEN [id number]) Nutrition Notes Need for Assessment generated from: 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 Current Diet Regular Diet + D Suppl (since B 11/15). Labs/Tests 11/15: Cl 111.5, Crea 0.4. Pertinent Medications 11/15: Nutritionally unremarkable. 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 Weight Status Underweight Subjective/Other Information RD consult for risk of malnutrition, Low BMI, and dietary supplementation assessments. Pt advanced to PO, No reports available on Pt's PO intake of meals at the time, will assess at F/U. I will prescribe dietary supplementation to compensate for possible poor or insufficient PO intake of meals. Pt is on Room Air, O2 saturation @ 98%, according to Physical Assessment History notes. Procedure on 11/14: Exchange of indwelling biliary drainage catheter, well tolerated, according to Operative Report notes. Pt shows no signs of concern for risk of malnutrition at the time, according to Physical Assessment History notes. Pt's Low BMI seems to correspond to a natural body composition, and not related to a sudden loss of body weight nor chronic malnutrition, since no signs of concern were mentioned in the Physical Assessment History or the Progress notes. Percent of energy/protein needs met: Prescribed Regular Diet provides for energy/protein needs (2,289 Kcal/89 g) during LOS; additionally, Dietary Supplements will compensate for possible poor or insufficient PO intake of meals with 320 Kcal and 32 g of protein. Burn Absent Trauma Absent GI Symptoms None Food Allergy Yes Skin Integrity/Comment Abdominal surgical wound. 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 As Evidenced by Signs and Symptoms Low BMI, Anemia. Is patient on ventilator? No Is Patient Ambulatory and/or Out of Bed Yes REE-([place]-St. Jeor-ambulatory/OOB) [ 1467.219 NUTR.MSJOOB] Kcal/Kg value to use for calculation 33 Approximate Energy Requirements Using 1719 kcal/Kg Calculation Used for Recommendations Kcal/kg Additional Notes Protein: 1.5-2 g/Kg ABW; 78- 104 g/day. Fluids: 1 ml/Kcal, or as per MD. Nutrition Intervention Change Diet Order: Continue Regular Diet. Add Supplement/Snack (indicate name/kcal Start 8 fl oz Ensure High /protein ) Protein; BID. Provides kCal: 320 Provides Protein (gm) 32 Goal #1 Compensate, through dietary supplementation, for possible poor or insufficient PO intake of meals during LOS. Goal #2 Adjust the dietary intervention to better serve Pt's needs and clinical conditions during LOS. Follow-Up By: 11/22/21 Additional Comments Continue monitoring food tolerance, %PO intake of meals and ONS, and BM.
[2021-11-17] MEDS: MORPHINE 2 MG/1 ML INJ IV PRN ×2 (12:04→17:04)
[2021-11-18] MEDS: MORPHINE 4 MG/1 ML INJ IV PRN ×2 (00:38→09:47)
[2021-11-18] MEDS: CEFEPIME/NS 2 GM/100 ML 2 GM/100 ML BAG IV SCH (02:39)
--- NOTE | 2021-11-18 08:09 | Discharge Summary ---
Providers - Providers Date of Admission: 11/14/21 05:35 Date of discharge: 11/18/21 Attending physician: TRISTIN CRUZ MD 11/14/21 05:38 Consult to Interventional Radiology [CONS] Routine Consulting Provider: ZIGGY DARLING Reason For Exam: Biliary cancer/biliary drain Notified:: krystle Was contact made?: Yes 11/16/21 11:38 Occupational Therapy Evaluate and Treat [CONS] Routine Comment: Reason For Exam: weakness Physical Therapy Evaluation and Treat [CONS] Routine Comment: Reason For Exam: weakness Primary care physician: ELECTRICAL CONTINUITY TESTER Hospitalization Reason for admission: fevers Condition: Stable Hospital course: Interval history: This is a 61-year-old female with cholangiocarcinoma status post radiation with embolization ablation and biliary drain placement, DVT on home Eliquis since 2007 who presented to emergency department on 11/14 with complaints of body ach es, fevers, chills and increased drainage from her biliary drain site which was said to be purulent. She stated over the past days she noted that the drainage from her wound site was purulent and she had abdominal pain at the insertion site. In the emergency department patient had a CT scan of abdomen/pelvis which showed large complex hepatic mass with resultant left duct dilation which represents clinical carcinoma and a complex collection in the anterior portion of the hepatic mass which continues to drain, and large node anterior to the left hepatic lobe. Surgery was consulted in the emergency department with stated there was no acute or emergent surgical intervention and suggested consult to them IR for possible intervention in a.m. Patient was admitted to the hospitalist service with symptomatic anemia and sepsis to the IMCU. Patient was given IV fluids and eventually needed to be started on Levophed and was transferred to ICU. [facility] was consulted. Hospital course to date: 11/14: Patient has been weaned off of Levophed, was taken to IR suite with exchange of indwelling biliary drain catheter and placement of a new biliary drain catheter. Patient has been stable in the ICU and will be transferred to the floor. 11/15: Patient remained off levophed, drain is draining brown/bolanos fluid. Awaiting floor bed. 11/16: GRICELDA, remains stable. RN states there is increased drainage around the biliary drain, GNR has not speciated yet. Remains on abx. 11/17: Wound and surgical cx growing klebsiella Oxytoca. Continue Cefepime IV. Will await sensitivities. Anticipate d/c in next 24-48 hrs. 11/18: K Oxytoca is sensitive to ciprofloxacin. Will discharge home with Rx for ciprofloxacin for GNR suppression as well as oxycodone. Clear for discharge to home. Neuro: NAD -Reorientation as needed -Maintain sleep-wake cycle -As needed analgesia Cardiac: NAD -CCM consulted, appreciate recommendations -S/p vasopressor support with Levophed -Blood pressure monitoring per protocol Respiratory: NAD -Currently on room air -SPO2 monitor per protocol -Supplemental oxygen as needed -Pulmonary hygiene GI: Mild protein calorie malnutrition, transaminitis, -Regular diet -PPI -Nutrition supplementation -BR: Colace -24 hours +845 ml -Trend LFTs : NAD -Monitor intake and output -Renally dose medication -Avoid nephrotoxic medication -Trend BMP ID: Sepsis (POA), lactic acidosis, biliary drain malfunction (resolved) -Per patient patient had a biliary drain initially placed towards the end of 2020 which became clogged in June and was exchanged, catheter was exchanged again in October. Take ciprofloxacin for chronic suppression however had been missing a few doses leading up to admission -Presented with fevers, purulent drainage from biliary drain site, hypotension, lactic acidosis -CT abdomen/pelvis showed large left hepatic mass with left ductal dilation and fluid collection -IR consulted, appreciate recommendations -S/p fluoroscopic guided evaluation of indwelling drainage catheter demonstrati ng cloudy drainage catheter, fluoroscopic guided exchange of indwelling biliary drain catheter with placement of new 10 [place] biliary drain catheter with prompt return of significant amounts of bilious fluid with small amount of blood-tinged fluid -S/p 3 L normal saline bolus -Antibiotic therapy with cefepime IV -f/u blood culture -Wound/surgical culture obtained by IR: both growing Klebsiella oxytoca (please see micro report for sensitivites). will d/c on cipro for chronic suppression. -Monitor WBC and temperature curve -Trend lactic acid Endo: NAD -Avoid hypoglycemia Heme: Symptomatic anemia -Trend CBC -Transfuse hemoglobin less than 7 -Admit H/H 6.3/19.9 -s/p 2 unit PRBC -SCDs to BLE while in bed #Advance care planning Disease education conducted, care plan discussed, diagnoses discussed, prognosis discussed, patient is full code, patient acknowledges understanding and agree with care plan, +30 minutes. Disposition: HOME / SELF CARE / HOMELESS Final Discharge Diagnosis (Prints w/discharge instructions): biliary drain malfunction, cholangiocarcinoma, septic shock/sepsis POA, symptomatic anemia Time spent for discharge: 35 Core Measure Documentation - Palliative Care Palliative Care/ Comfort Measures: Not Applicable - Core Measures Any of the following diagnoses?: none Exam - Physical Exam Narrative exam: General appearance: Present: no acute distress, cachectic - EENT Eyes: Present: PERRL, EOM intact ENT: hearing intact, clear oral mucosa, dentition normal - Neck Neck: Present: normal ROM - Respiratory Respiratory effort: normal Respiratory: bilateral: CTA, diminished - Cardiovascular Rhythm: regular Heart Sounds: Present: S1 & S2. Absent: systolic murmur, diastolic murmur - Extremities Extremities: no ischemia, pulses intact, pulses symmetrical, No edema, normal temperature, normal color, Full ROM Peripheral Pulses: within normal limits - Abdominal General gastrointestinal: soft, non-tender - Integumentary Integumentary: Present: clear, warm (biliary drain with drainge around site, yellow/green) - Psychiatric Psychiatric: cooperative - Neurologic Neurologic: CNII-XII intact, no focal deficits, moves all extremities - Allied Health Allied health notes reviewed: nursing, RT - Constitutional Vitals: Temp Pulse Resp BP Pulse Ox 99.0 F 73 17 136/78 98 11/17/21 21:25 11/17/21 21:25 11/18/21 06:00 11/17/21 21:25 11/17/21 22:00 Plan Follow up with: PRIMARY CAREMD [Primary Care Provider] - 3-5 Days Prescriptions: Ciprofloxacin HCl 500 mg PO BID 30 Days #60 tab OXYCODONE hcl [Oxycodone] 15 mg PO Q6HR PRN 3 Days #12 tab PRN Reason: severe pain
[2021-11-18] MEDS: FAMOTIDINE 20 MG TAB PO SCH (09:41)
[2021-11-18] MEDS: APIXABAN 2.5 MG TAB PO SCH (09:42)
[2021-11-18] MEDS: DOCUSATE SODIUM 100 MG CAP PO SCH (09:42)
[2021-11-18 10:34] VITALS: BP 139/76
== END 2021-11-18 11:40 | disposition home or self-care (01) | DRG 871 ==
LOC: ED 01:30 → IMCU 05:35 → CC1 08:34 → 3A 11-16 11:38
PROVIDERS: ADMIT Hospitalist; ATTEND Internal Medicine
PROC: 0T9B80Z Drainage of Bladder with Drainage Device, Via Natural or Artificial Opening Endoscopic (ICD-10-PCS; principal; 2021-11-14)
DX: A41.9 Sepsis, unspecified organism (principal); R65.21 Severe sepsis with septic shock; C22.1 Intrahepatic bile duct carcinoma; E44.1 Mild protein-calorie malnutrition; Z68.1 Body mass index [BMI] 19.9 or less, adult; E87.2 Acidosis; E87.1 Hypo-osmolality and hyponatremia; D64.9 Anemia, unspecified; Z82.49 Family history of ischemic heart disease and other diseases of the circulatory system; E11.9 Type 2 diabetes mellitus without complications
CPT/HCPCS: 36415; 49423; 71045; 74177; 80048; 80053; 80076; 82140; 82565; 83690; 85007; 85025; 85027; 85610; 85730; 86850; 86900; 86901; 86920; 87040; 87076; 87116; 87186; 93005; G0378; J2354; J3490; J7517; C1729; C1769; J0692; J2250; J2270; J2405; J2543; J3010; J3370; J7030; J7040; J7042; J7050; P9016; Q9967